=== PATIENT | female | born 1960 | race Two or more races ===

== ENCOUNTER 2025-01-10 17:36 | Emergency (ER) | payer SELFPAY ==
[~2025-01-10] VITALS: Ht 149.9 cm; Wt 74.5 kg
--- NOTE | 2025-01-10 18:05 | ED.PDOC ---
SOB-HPI HPI Comments HPI: 64 y/o F, with PMHx of CKF, DM, HTN, and CVA presents to the ED for CC of shortness of breath. Patient states, she has been experiencing symptoms of shortness of breath x1week. Patient reports, being seen by PCP today (01/10/25) and being relayed to the ED for a further evaluation of symptoms. Patient comments, that she is complaint with dialysis every ,,Sat; last dialyzed yesterday (01/09/25). At this time patient denies palpations, chest pain, headache, cough, sore-throat, or nasal congestion. No other symptoms or modifying factors are present at this time. Patient is still makes urine. Initial Vitals BP:176/70 HR:66 RR:20 O2:98% Temp:98.3 Past Medical History: CKF, DM, HTN, CVA Past Surgical History: LEFT FISTULA Social History: Denies ETOH, smoking, and drug use. Medications: DENIES ANY Allergies: NKA PROCTOR: SOB HPI: Poor Historian. REVIEW OF SYSTEMS: CONSTITUTIONAL: Denies acute: fever, diaphoresis, chills, generalized weakness. HEAD: Denies acute: headache, photophobia Eyes: Denies acute: Double vision, vision loss, eye pain, eye discharge. EARS: Denies acute: tinnitus, hearing loss, ear discharge, ear pain, THROAT: Denies acute: sore throat, swelling, difficulty swallowing , pain with swallowing, change in voice. NECK: Denies acute: neck pain, neck swelling, stiff neck. HEART: Denies acute : chest pain, palpitations, LUNGS: Denies acute: , wheezing, cough, hemoptysis ABDOMEN: Denies acute: abdominal pain, Nausea, Vomiting, diarrhea, melena , hematemesis, hematochezia SKIN: Denies acute: rash, redness, lesions, itchiness. EXTREMITIES: Denies acute: calf pain, numbness, tingling, weakness, denies pain in extremity. Denies acute: Low back pain. Neuro: Denies acute: focal neurological deficit, motor or sensory focal neurological deficit, tremors, seizure like activity, confusion, dizziness, change in mental status, loss of bowel or bladder function, cauda equina like symptoms. : Denies acute: dysuria, hematuria, flank pain, increase in urinary frequency. PSYCH: Denies acute: hallucination, suicidal ideation, homicidal ideation. FEMALE: Denies acute: abnormal vaginal bleeding, foul odor, unusual discharge. PHYSICAL EXAM: General: --mild------acute distress, awake and alert. Head: normocephalic, atraumatic. Neck: supple, trachea is midline, no swelling. Throat: Normal phonation. Eyes:, no erythema, no purulent discharge, no proptosis, no icterus. Heart: regular rate, regular rhythm, no significant murmur appreciated. Lungs: no apparent respiratory distress, Able to speak in full sentences. No wheezing, no rhonchi, no crackles. No stridors Clear to auscultation bilaterally. Abdomen: non tender to palpation, non distended, soft, no guarding, no rebound, + bowel sounds. Obese Neuro: Awake, Alert, oriented to name, self, situation, follows commands GCS=15. Speech is normal. Skin: no petechia, no purpura, no cyanosis, non-pale, not jaundice. Lower extremities: --no - Pitting edema no deformity, no focal swelling, no calf TTP. Makes eye contact. moves all four extremities. Face: no apparent facial droop. Ambulating in the ED with a cane. ED COURSE: DISCLAIMER: This medical document was created using an electronic medical record system with voice recognition software and computerized dictation system. Although this document has been carefully reviewed, there might still be some phonetic and typographical errors. Occasional wrong-word or "sound-alike" substitutions may have occurred due to the inherent limitations of voice recognition software. These areas are purely typographical due to imperfections of the software programs and do not reflect any compromise in the patient's medical care. Please read the chart carefully and recognize, using context, where these substitutions have occurred. Chief Complaint: Shortness of Breath Time Seen by MD: 17:50 Reviewed notes: Nurses Notes, Medications, Allergies Information Source: Patient, Relative (Child) Mode of Arrival: Ambulatory Severity: Moderate Timing: Weeks Duration: Since onset PE Risk Factors: None History of: None Prehospital treatment: None Modifying Factors: Nothing Associated Signs and Symptoms: None EKG EKG : Pulse Rate (adult): 64 Harmans: Normal Cardiac Rhythm: NSR Block: RBBB Hypertrophy: None ST: Normal Was a procedure done? Was a procedure done?: No Differential Dx Differential Diagnosis: Bronchitis, Pneumonia, Sinusitis, Pharyngitis, URI X-Ray, Labs, Meds, VS Vital Signs Date Time Temp Pulse Resp B/P (MAP) Pulse Ox O2 Delivery O2 Flow Rate FiO2 01/10/25 18:05 64 01/10/25 17:48 61 01/10/25 17:40 98.3 66 20 176/70 98 98.3 Lab Test 01/10/25 18:58 01/10/25 18:02 Range/Units Troponin I High Sensitivity 15 15 </=34 ng/L White Blood Count 5.5 4.4-10.8 10^3/uL Red Blood Count 2.92 L 4.0-5.20 10^6/uL Hemoglobin 9.5 L 12.2-16.2 g/dL Hematocrit 27.9 L 36.0-46.0 % Mean Corpuscular Volume 95.4 80.0-100.0 fL Mean Corpuscular Hemoglobin 32.6 H 28.0-32.0 pg Mean Corpuscular Hemoglobin Concent 34.2 32.0-36.0 g/dL Red Cell Distribution Width 14.0 11.8-14.3 % Platelet Count 231 140-450 10^3/uL Mean Platelet Volume 8.8 6.9-10.8 fL Neutrophils (%) (Auto) 51.3 37.0-80.0 % Lymphocytes (%) (Auto) 30.9 10.0-50.0 % Monocytes (%) (Auto) 12.3 H 0.0-12.0 % Eosinophils (%) (Auto) 4.0 0.0-7.0 % Basophils (%) (Auto) 1.5 0.0-2.0 % Neutrophils # (Auto) 2.8 1.6-8.6 10 ^3/uL Lymphocytes # (Auto) 1.7 0.4-5.4 10 ^3/uL Monocytes # (Auto) 0.7 0-1.3 10 ^3/uL Eosinophils # (Auto) 0.2 0-0.8 10 ^3/uL Basophils # (Auto) 0.1 0-0.2 10 ^3/uL Nucleated Red Blood Cells 0.0 % Sodium Level 139 136-145 mmol/L Potassium Level 4.2 3.5-5.1 mmol/L Chloride Level 95 L 98-107 mmol/L Carbon Dioxide Level 32 H 20-31 mmol/L Anion Gap 12 5-15 Blood Urea Nitrogen 23 9-23 mg/dL Creatinine 5.04 H 0.550-1.02 mg/dL Glomerular Filtration Rate Calc 9 >90 mL/min BUN/Creatinine Ratio 4.6 L 10.0-20.0 Serum Glucose 137 H 74-106 mg/dL Calcium Level 8.9 8.7-10.4 mg/dL Total Bilirubin 0.8 0.2-1.0 mg/dL Aspartate Amino Transferase (AST) 15 13-40 U/L Alanine Aminotransferase (ALT) 10 7-40 U/L Alkaline Phosphatase 114 46-116 U/L B-Type Natriuretic Peptide 713.41 0-100 pg/mL Total Protein 7.6 5.7-8.2 g/dL Albumin 4.1 3.2-4.8 g/dL [place] [address] Ph: [phone] DIAGNOSTIC IMAGING Diagnostic Imaging Report : [id number] Signed PATIENT: AGUSTIN PROCTOR ACCT: [id number] UNIT: [id number] : 1960 LOC: ER ROOM / BED: / AGE / SEX: 64 / F ADM STATUS: REG ER SERVICE [id number] ORDERING PHYSICIAN: DENA HERNANDEZ DO PROCEDURE(s): CXRP - CHEST PORTABLE REASON: sob ORDER NUMBER(s): [id number], ACCESSION NUMBER(s): [id number] CHEST RADIOGRAPH Indication: sob Technique: XY CHEST PORTABLE COMPARISON: None FINDINGS: The cardiac silhouette is enlarged. The lungs demonstrate bilateral patchy airspace opacities. The pulmonary vasculature is prominent. Small bilateral pleural effusions. Aortic atherosclerotic disease. There is no pneumothorax. Left axillary/ subclavian stent. IMPRESSION: As above ATED BY: SACHA SCHMIDT MD DICTATED DATE/TIME: 01/10/25 3507 SIGNED BY: SACHA SCHMIDT MD SIGNED DATE/TIME: 01/10/251853 CC: Time of 1ST Reevaluation: 18:20 Reevaluation 1ST: Unchanged Patient Education/Counseling: Diagnosis, Treatment Family Education/Counseling: Diagnosis, Treatment SEPSIS Sepsis Screen Date sepsis recognized/suspect: Jan 10, 2025 Time Sepsis recognized/suspect: 1739 Recent Procedure: No On Antibiotic Therapy: No Respiratory Rate >20: No Heart Rate >90: No Temp<36 C (96.8 F) or >38.3 C: No SBP <90 or MAP <65 mmHG: No New Acute Mental Status Change: No Is the patient on CPAP, BIPAP,: No Physician Orders [facility] (01/10/25 ) Urinalysis (01/10/25 17:45) Chest Portable (01/10/25 17:45) Electrocardigram (01/10/25 17:45) Electrocardigram (01/10/25 18:45) Electrocardigram (01/10/25 20:45) Vital Signs Date Time Temp Pulse Resp B/P (MAP) Pulse Ox O2 Delivery O2 Flow Rate FiO2 01/10/25 18:05 64 01/10/25 17:48 61 01/10/25 17:40 98.3 66 20 176/70 98 98.3 Laboratory Tests Test 01/10/25 18:02 White Blood Count 5.5 10^3/uL (4.4-10.8) Departure 1 Departure Time of Disposition: 19:06 Impression: Primary Impression: Dyspnea Additional Impressions: Pulmonary vascular congestion End-stage renal disease on hemodialysis Anemia Disposition: HOME / SELF CARE / HOMELESS Condition: Stable Additional Instructions: Additional instructions: Please read all instructions provided in this packet carefully. You MUST follow-up with your primary care/family doctor in 1 to 2 days. If you are unable to see your primary care/family doctor, please return to our emergency room for re-assessment and re-evaluation in 1 to 2 days. Return to the emergency room here in our facility or to the nearest ER [facility] if your symptoms change or worsen. CONSULTATIONS: you MUST Follow-up for consultation as soon as possible with: --cardiology and pulmonology in 1-2 days. Please call for appointment. You MUST call the consultants office yourself to make an appointment. You may need to arrange that through your insurance and/or your primary/family doctor. If you are unable to see the [facility] consultant in 1 to 2 days, you must return to our emergency room (or any other ER of your choice) for re-assessment and re-evaluation. Adequate fluid hydration. Although you have been discharged from the Emergency Department, this does not mean that you have a "clean bill of health". No definitive diagnosis for your symptoms has been made today. It is possible that you are in the process of developing a serious illness. This is why you must return to the ED without fail if any new or worsening symptoms develop. Go to your dialysis as scheduled tomorrow. Below is a copy of your radiological report for follow up: [place] [address] Ph: [phone] DIAGNOSTIC IMAGING Diagnostic Imaging Report : [id number] Signed PATIENT: AGUSTIN PROCTOR ACCT: [id number] UNIT: [id number] : 1960 LOC: ER ROOM / BED: / AGE / SEX: 64 / F ADM STATUS: REG ER SERVICE 44 ORDERING PHYSICIAN: DENA HERNANDEZ DO PROCEDURE(s): CXRP - CHEST PORTABLE REASON: sob ORDER NUMBER(s): [id number], ACCESSION NUMBER(s): [id number] CHEST RADIOGRAPH Indication: sob Technique: XY CHEST PORTABLE COMPARISON: None FINDINGS: The cardiac silhouette is enlarged. The lungs demonstrate bilateral patchy airspace opacities. The pulmonary vasculature is prominent. Small bilateral pleural effusions. Aortic atherosclerotic disease. There is no pneumothorax. Left axillary/ subclavian stent. IMPRESSION: As above ATED BY: SACHA SCHMIDT MD DICTATED DATE/TIME: 01/10/251853 SIGNED BY: SACHA SCHMIDT MD SIGNED DATE/TIME: 01/10/251853 CC: Discharged With: Self, Relative Critical Care Note Critical Care Time?: No Heart Score Heart Score: Heart Score Response (Comments) Value History Slightly Suspicious 0 EKG N/A 0 Age 45-64 1 Risk Factors 1 or 2 risk factors 1 Troponin N/A 0 Total 2 I personally scribed for DENA HERNANDEZ DO ([email or web address]) on 01/10/25 at 18:05. Electronically submitted by Gilma Baltazar ([email or web address]). I personally scribed for DENA HERNANDEZ DO ([email or web address]) on 01/10/25 at 19:10. Electronically submitted by Gilma Baltazar ([email or web address]). DENA HERNANDEZ DO Jan 10, 2025 18:05
[2025-01-10 18:22] LABS: Hematocrit 27.9 % (36.0-46.0); Hemoglobin 9.5 g/dL (12.2-16.2); Mean Corpuscular Hemoglobin 32.6 pg (28.0-32.0); Mean Corpuscular Volume 95.4 fL (80.0-100.0); Nucleated Red Blood Cells % 0.0 %
[2025-01-10 18:40] LABS: Alanine Aminotransferase 10 U/L (7-40); Albumin 4.1 g/dL (3.2-4.8); Alkaline Phosphatase 114 U/L (46-116); Anion Gap 12 (5-15); BUN/Creatinine Ratio 4.6 (10.0-20.0); Blood Urea Nitrogen 23 mg/dL (9-23); Calcium 8.9 mg/dL (8.7-10.4); Potassium 4.2 mmol/L (3.5-5.1); Sodium 139 mmol/L (136-145); Total Protein 7.6 g/dL (5.7-8.2)
[2025-01-10 18:41] LABS: Bilirubin, Total 0.8 mg/dL (0.2-1.0)
[2025-01-10 18:44] LABS: Carbon Dioxide 32 mmol/L (20-31); Chloride 95 mmol/L (98-107); Glucose 137 mg/dL (74-106)
--- NOTE | 2025-01-10 18:53 | DVH ---
CHEST RADIOGRAPH Indication: sob Technique: XY CHEST PORTABLE COMPARISON: None FINDINGS: The cardiac silhouette is enlarged. The lungs demonstrate bilateral patchy airspace opacities. The pu lmonary vasculature is prominent. Small bilateral pleural effusions. Aortic atherosclerotic disease. There is no pneumothorax. Left axillary/ subclavian stent. IMPRESSION: As above
[2025-01-10] MEDS: FUROSEMIDE 40 MG/4 ML VIAL IV ONE (19:15)
[2025-01-10 21:45] VITALS: BP 140/90; PULSE 67; RESP 18; TEMP 98.4; O2SAT 95
--- NOTE | 2025-01-11 06:17 | ECG ---
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
== END 2025-01-10 21:50 | disposition home or self-care (01) ==
LOC: ER 17:36
DX: R06.00 Dyspnea, unspecified (principal); R09.89 Other specified symptoms and signs involving the circulatory and respiratory systems; D64.9 Anemia, unspecified; I12.0 Hypertensive chronic kidney disease with stage 5 chronic kidney disease or end stage renal disease; E11.22 Type 2 diabetes mellitus with diabetic chronic kidney disease; N18.6 End stage renal disease; Z86.73 Personal history of transient ischemic attack (TIA), and cerebral infarction without residual deficits; Z99.2 Dependence on renal dialysis
CPT/HCPCS: 36415; 71045; 80053; 83880; 84484; 85025; 93005

== ENCOUNTER 2025-01-26 11:11 | Inpatient (IN) | payer MEDICARE, MEDICAID ==
[2025-01-26] VITALS (7 sets, daily range): BP systolic 148–185; BP diastolic 48–85; PULSE 55–64; RESP 16–20; TEMP 98–98.2; O2SAT 93–99
[~2025-01-26] VITALS: Ht 149.9 cm; Wt 74.4 kg
--- NOTE | 2025-01-26 11:40 | ECG ---
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
[2025-01-26 12:06] LABS: Hematocrit 26.6 % (36.0-46.0); Hemoglobin 8.9 g/dL (12.2-16.2); Mean Corpuscular Hemoglobin 31.9 pg (28.0-32.0); Mean Corpuscular Volume 94.8 fL (80.0-100.0); Nucleated Red Blood Cells % 0.1 %
--- NOTE | 2025-01-26 12:08 | ED.PDOC ---
General HPI Comments jHPI: Shane 64 y.o female accompanied by daughter, presents to the ED for a chief complaint of right mid back pain that started 2 days ago. Per daughter, patient had no recent falls, bending, or twisting episodes that could have exacerbated the pain. Patient does continue to have SOB, was seen at this ED on 01/10/25 for c/o and discharged home with a dx of dyspnea. Patient presents hypertensive at bedside with BP of 176/70. Last dialysis session was yesterday 01/25/25 and patient states compliance with medication which she took this morning. She does not know the list of medications she takes nor did she bring a list. Past Medical History: ESRD, DM, HTN, HLD, Past Surgical History: left fistula Social History: Denies ETOH, smoking, and drug use. Allergies: Denies HPI: Poor Historian. REVIEW OF SYSTEMS: CONSTITUTIONAL: Denies acute: fever, diaphoresis, chills, HEAD: Denies acute: headache, photophobia Eyes: Denies acute: Double vision, vision loss, eye pain, eye discharge. EARS: Denies acute: tinnitus, hearing loss, ear discharge, ear pain, THROAT: Denies acute: sore throat, swelling, difficulty swallowing , pain with swallowing, change in voice. NECK: Denies acute: neck pain, neck swelling, stiff neck. HEART: Denies acute : chest pain, palpitations, LUNGS: Denies acute: wheezing, cough, hemoptysis ABDOMEN: Denies acute: abdominal pain, Nausea, Vomiting, diarrhea, melena , hematemesis, hematochezia SKIN: Denies acute: rash, redness, lesions, itchiness. EXTREMITIES: Denies acute: calf pain, numbness, tingling, weakness, denies pain in extremity. Neuro: Denies acute: focal neurological deficit, motor or sensory focal neurological deficit, tremors, seizure like activity, confusion, dizziness, change in mental status, loss of bowel or bladder function, cauda equina like symptoms. : Denies acute: dysuria, hematuria, flank pain, increase in urinary frequency. PSYCH: Denies acute: hallucination, suicidal ideation, homicidal ideation. FEMALE: Denies acute: abnormal vaginal bleeding, foul odor, unusual discharge. PHYSICAL EXAM: General: ---mild-----acute distress, awake and alert. Head: normocephalic, atraumatic. Neck: supple, trachea is midline, no swelling. Throat: Normal phonation. Eyes:, no erythema, no purulent discharge, no proptosis, no icterus. Heart: regular rate, regular rhythm, no significant murmur appreciated. Lungs: no apparent respiratory distress, Able to speak in full sentences. No wheezing, no rhonchi, no crackles. No stridors Clear to auscultation bilaterally. Abdomen: non tender to palpation, non distended, soft, no guarding, no rebound, + bowel sounds. Obese Palpation of the area of pain: She points to right mid back area. Neuro: Awake, Alert, oriented to name, self, situation, follows commands GCS=15. Speech is normal. Skin: no petechia, no purpura, no cyanosis, non-pale, not jaundice. Lower extremities: --trace bilateral - Pitting edema no deformity, no focal swelling, no calf TTP. Able to flex bilateral hips and knees. Makes eye contact. moves all four extremities. Face: no apparent facial droop. ED COURSE: DISCLAIMER: This medical document was created using an electronic medical record system with voice recognition software and computerized dictation system. Although this doc ument has been carefully reviewed, there might still be some phonetic and typographical errors. Occasional wrong-word or "sound-alike" substitutions may have occurred due to the inherent limitations of voice recognition software. These areas are purely typographical due to imperfections of the software programs and do not reflect any compromise in the patient's medical care. Please read the chart carefully and recognize, using context, where these substitutions have occurred. Chief Complaint: Shortness of Breath Time Seen by MD: 11:56 Reviewed notes: Allergies Allergies: Coded Allergies: NO KNOWN ALLERGIES (Unverified , 01/10/25) Home Meds Reported Medications Carvedilol (Carvedilol) 3.125 Mg Tab, 1 TAB PO BID 01/26/25 Fluoxetine HCl (Fluoxetine HCl) 20 Mg Cap, 1 CAP PO DAILY 01/26/25 Atorvastatin Calcium (ATORVASTATIN CALCIUM) 80 Mg Tab, 1 TAB PO DAILY 01/26/25 Hydralazine Hcl (Hydralazine Hcl) 50 Mg Tab, 1 TAB PO TID 01/26/25 Information Source: Patient, Relative Mode of Arrival: Ambulatory Was a procedure done? Was a procedure done?: No Differential Diagnosis Kidney stone (Female): DJD, Musculoskeletal pain, Pancreatitis, Pyelonephritis, Strain, Other (Flank Pain;DDX include Nephrolethiasis, obstructive uropathy, kidney cancer, renal infarct, intraabdominal neoplasm, lower lobe pneumonia, retroperitoneal hemorrhage, pancreatitis, aneurysm, dissection, musculoskeletal, rib contusion/trauma, hematoma, PYLONEPHRITIS, muscle strain, spinal disease. ) X-Ray, Labs, Meds, VS Vital Signs Date Time Temp Pulse Resp B/P (MAP) Pulse Ox O2 Delivery O2 Flow Rate FiO2 01/26/25 16:31 60 23 156/48 (84) 98 01/26/25 16:26 194/54 01/26/25 14:24 198/62 01/26/25 14:23 198/62 01/26/25 14:04 98.2 65 28 198/62 (107) 96 98.2 01/26/25 13:31 207/62 01/26/25 12:33 63 20 97 Nasal Cannula* 2 28 01/26/25 12:31 63 20 221/38 (98) 97 01/26/25 11:30 65 01/26/25 11:13 97.7 68 18 182/80 95 97.7 Lab Test 01/26/25 15:27 01/26/25 15:25 01/26/25 12:46 01/26/25 11:50 Range/Units Troponin I High Sensitivity 15 16 16 </=34 ng/L Urine Color Light-yellow Yellow Urine Clarity Turbid H Clear Urine pH 8.5 5.0-9.0 Urine Specific [place] 1.007 1.001-1.035 Urine Protein 3+ H Negative Urine Ketones Negative Negative Urine Blood Negative Negative /uL Urine Nitrite Negative Negative Urine Bilirubin Negative Negative Urine Urobilinogen Normal Negative mg/dL Urine Leukocyte Esterase 2+ Negative /uL Urine RBC 1 0 - 4 /hpf Urine Microscopic WBC 15 H 0-5 /HPF Urine Squamous Epithelial Cells Mod <5 /hpf Urine Bacteria Few H None Seen /hpf Urine Glucose 1+ H Normal mg/dL White Blood Count 5.7 4.4-10.8 10^3/uL Red Blood Count 2.80 L 4.0-5.20 10^6/uL Hemoglobin 8.9 L 12.2-16.2 g/dL Hematocrit 26.6 L 36.0-46.0 % Mean Corpuscular Volume 94.8 80.0-100.0 fL Mean Corpuscular Hemoglobin 31.9 28.0-32.0 pg Mean Corpuscular Hemoglobin Concent 33.6 32.0-36.0 g/dL Red Cell Distribution Width 14.6 H 11.8-14.3 % Platelet Count 188 140-450 10^3/uL Mean Platelet Volume 8.9 6.9-10.8 fL Neutrophils (%) (Auto) 52.5 37.0-80.0 % Lymphocytes (%) (Auto) 28.3 10.0-50.0 % Monocytes (%) (Auto) 14.0 H 0.0-12.0 % Eosinophils (%) (Auto) 3.0 0.0-7.0 % Basophils (%) (Auto) 2.2 H 0.0-2.0 % Neutrophils # (Auto) 3.0 1.6-8.6 10 ^3/uL Lymphocytes # (Auto) 1.6 0.4-5.4 10 ^3/uL Monocytes # (Auto) 0.8 0-1.3 10 ^3/uL Eosinophils # (Auto) 0.2 0-0.8 10 ^3/uL Basophils # (Auto) 0.1 0-0.2 10 ^3/uL Nucleated Red Blood Cells 0.1 % Sodium Level 139 136-145 mmol/L Potassium Level 3.9 3.5-5.1 mmol/L Chloride Level 94 L 98-107 mmol/L Carbon Dioxide Level 32 H 20-31 mmol/L Anion Gap 13 5-15 Blood Urea Nitrogen 15 9-23 mg/dL Creatinine 3.90 H 0.550-1.02 mg/dL Glomerular Filtration Rate Calc 12 >90 mL/min BUN/Creatinine Ratio 3.8 L 10.0-20.0 Serum Glucose 127 H 74-106 mg/dL Hemoglobin A1c 6.1 H <5.7 % A1C Lactic Acid Level 1.5 0.4-2.0 mmol/L Calcium Level 8.9 8.7-10.4 mg/dL Total Bilirubin 0.6 0.2-1.0 mg/dL Aspartate Amino Transferase (AST) 13 13-40 U/L Alanine Aminotransferase (ALT) 10 7-40 U/L Alkaline Phosphatase 105 46-116 U/L B-Type Natriuretic Peptide 719.83 0-100 pg/mL Total Protein 7.1 5.7-8.2 g/dL Albumin 4.0 3.2-4.8 g/dL Current Medications Medications (Trade) Dose Ordered Sig/Carito Route Start Time Stop Time Status Last Admin Hydralazine HCl (Apresoline Injection) 5 mg ONCE ONCE IV 01/26/25 13:30 01/26/25 13:31 DC 01/26/25 13:31 Furosemide (Lasix Injection) 40 mg ONCE ONCE IV 01/26/25 13:45 01/26/25 13:48 DC 01/26/25 14:23 Hydralazine HCl (Apresoline Injection) 5 mg ONCE ONCE IV 01/26/25 14:15 01/26/25 14:16 DC 01/26/25 14:24 Acetaminophen/ Hydrocodone Bitart (Casey 5/325MG Tab) 1 tab ONCE ONCE PO 01/26/25 14:15 01/26/25 14:16 DC 01/26/25 14:23 Hydralazine HCl (Apresoline Injection) 10 mg ONCE ONCE IV 01/26/25 16:00 01/26/25 16:01 DC 01/26/25 16:26 Ceftriaxone Sodium 50 ml @ 100 mls/hr ONCE ONCE IV 01/26/25 16:15 01/26/25 16:44 DC 01/26/25 16:26 [place] [id number] Ph: [phone] DIAGNOSTIC IMAGING Diagnostic Imaging Report : [id number] Signed PATIENT: AGUSTIN VANEGASACCT: [id number] UNIT: [id number] : 1960 LOC: ER ROOM / BED: / AGE / SEX: 64 / F ADM STATUS: REG ER SERVICE [id number] ORDERING PHYSICIAN: DENA HERNANDEZ DO PROCEDURE(s): ABPL - CT AB PEL WO CON-NO ORAL OR IV REASON: R FLANK PAIN ORDER NUMBER(s): [id number], ACCESSION NUMBER(s): [id number] CT CT AB PEL WO CON-NO ORAL OR IV INDICATION: R FLANK PAIN EXAM DATE: 01/26/2025 12:01 PM COMPARISON: None RADIATION DOSE: CTDIvol: 22 mGy, DLP: 1071 mGy*cm PROCEDURE: Helical CT images were obtained of the abdomen and pelvis without IV contrast Sagittal and coronal reconstructions are provided. ORAL CONTRAST: None. ADDITIONAL IMAGES / REFORMATS: None All CT scans at this medical facility are performed using dose modulation techniques as appropriate to a performed exam including the following: Automated exposure control was utilized; adjustment of the MA and/or KV according to patient size; and use of iterative reconstruction technique. FINDINGS: LUNG BASE: Normal. LIVER: Normal. GALLBLADDER AND BILIARY TREE: No calcified gallstones. Normal caliber wall. No intra- or extrahepatic biliary ductal dilation. PANCREAS: Normal. SPLEEN: Normal. BOWEL: Mild colonic diverticulosis. Normal appendix. ADRENALS: Normal. KIDNEYS AND URETER: 6 mm nonobstructive right kidney stone, no hydronephrosis seen. BLADDER: Normal. REPRODUCTIVE ORGANS: Normal. LYMPH NODES:No lymphadenopathy. PERITONEUM: No ascites or free air. No other fluid collection. VESSELS: Scattered atherosclerotic calcifications are noted. RETROPERITONEUM: Normal. ABDOMINAL WALL: Normal. BONES: Scattered osseous degenerative changes are noted. IMPRESSION: No acute intraabdominal abnormality. 6 mm nonobstructive right kidney stone, no hydronephrosis seen. ATED BY: JOHNATHAN HERNANDEZ MD DICTATED DATE/TIME: 01/26/25 1303 SIGNED BY: JOHNATHAN HERNANDEZ MD SIGNED DATE/TIME: 01/26/25 1303 CC: [place] [id number] Ph: [phone] DIAGNOSTIC IMAGING Diagnostic Imaging Report : [id number] Signed PATIENT: AGUSTIN VANEGASACCT: [id number] UNIT: [id number] : 1960 LOC: ER ROOM / BED: / AGE / SEX: 64 / F ADM STATUS: REG ER SERVICE 1146 ORDERING PHYSICIAN: DENA HERNANDEZ DO PROCEDURE(s): CXRP - CHEST PORTABLE REASON: sob, htn, ORDER NUMBER(s): [id number], ACCESSION NUMBER(s): [id number] EXAM: XY CHEST PORTABLE HISTORY: sob, htn, COMPARISON: XY CHEST PORTABLE on DOS: 01/10/25 TECHNIQUE: Portable upright AP view of the chest was performed. FINDINGS: No pneumothorax or consolidative infiltrates. There is central interstitial prominence. The heart is enlarged. Left subclavian vascular stent is re- identified. There is thoracic degenerative disc disease. IMPRESSION: 1. Cardiomegaly with central interstitial prominence, which may be due to reactive airways disease and/or mild CHF. The lungs are otherwise clear. ATED BY: REGINALD HOPPER MD DICTATED DATE/TIME: 01/26/251239 SIGNED BY: REGINALD HOPPER MD SIGNED DATE/TIME: 01/26/251239 CC: Time of 1ST Reevaluation: 12:00 Reevaluation 1ST: Unchanged Patient Education/Counseling: Diagnosis, Treatment Family Education/Counseling: Diagnosis, Treatment Comments MDM: patient presented with the above HPI.--right flank pain/shortness of breath----workup was initiated. patient was found with the above mentioned diagnosis. the following medications were ordered: please refer to order lists of meds and tests obtained by myself Dr. Hernandez. Patient ED course and VS have been stabilized. Patient has been reassessed in the ED and remained in a stable condition. Pertinent incidental findings were discussed with the patient and/or family. Patient/family voices understanding and is agreeable with plan. Patient has been observed in the ED adequate length of time to insure improvement/stability. Escalation of care considered: Consideration of escalation to observation or admission Patient has required multiple IV medication intervention for blood pressure control. Patient was ADMITTED to the medicine team for further evaluation and treatment of their presentation. All the reports of any imaging studies that were ordered by myself were reviewed by myself. Departure 1 Departure Time of Disposition: 16:09 Impression: Primary Impression: Hypertensive crisis Additional Impressions: UTI (urinary tract infection) Right flank pain CHF exacerbation Disposition: ADMITTED INPATIENT Condition: Guarded Discharged With: Self, Relative Critical Care Note Critical Care Time?: Yes (55 min-critical care time only) I personally scribed for DENA HERNANDEZ DO ([email or web address]) on 01/26/25 at 12:08. Electronically submitted by Susanne Vail ([facility]). I personally scribed for DENA HERNANDEZ DO ([facility]) on 01/26/25 at 13:30. Electronically submitted by Susanne Vail ([facility]). I personally scribed for DENA HERNANDEZ DO ([facility]) on 01/26/25 at 16:10. Electronically submitted by Susanne Vail ([facility]). I personally scribed for DENA HERNANDEZ DO ([facility]) on 01/26/25 at 17:05. Electronically submitted by Akbar Victoria ([facility]). DENA HERNANDEZ DO Jan 26, 2025 12:08
[2025-01-26 12:31] LABS: Alanine Aminotransferase 10 U/L (7-40); Albumin 4.0 g/dL (3.2-4.8); Alkaline Phosphatase 105 U/L (46-116); Anion Gap 13 (5-15); BUN/Creatinine Ratio 3.8 (10.0-20.0); Bilirubin, Total 0.6 mg/dL (0.2-1.0); Blood Urea Nitrogen 15 mg/dL (9-23); Calcium 8.9 mg/dL (8.7-10.4); Carbon Dioxide 32 mmol/L (20-31); Chloride 94 mmol/L (98-107); Glucose 127 mg/dL (74-106); Potassium 3.9 mmol/L (3.5-5.1); Sodium 139 mmol/L (136-145); Total Protein 7.1 g/dL (5.7-8.2)
--- NOTE | 2025-01-26 12:43 | DVH ---
EXAM: XY CHEST PORTABLE HISTORY: sob, htn, COMPARISON: XY CHEST PORTABLE on DOS: 01/10/25 TECHNIQUE: Portable upright AP view of the chest was performed. FINDINGS: No pneumothorax or consolidative infiltrates. There is central interstitial prominence. The heart i s enlarged. Left subclavian vascular stent is re-identified. There is thoracic degenerative disc dis ease. IMPRESSION: 1. Cardiomegaly with central interstitial prominence, which may be due to reactive airways disease an d/or mild CHF. The lungs are otherwise clear.
--- NOTE | 2025-01-26 13:06 | DVH ---
CT CT AB PEL WO CON-NO ORAL OR IV INDICATION: R FLANK PAIN EXAM DATE: 01/26/2025 12:01 PM COMPARISON: None RADIATION DOSE: CTDIvol: 22 mGy, DLP: 1071 mGy*cm PROCEDURE: Helical CT images were obtained of the abdomen and pelvis without IV contrast Sagittal and coronal reconstructions are provided. ORAL CONTRAST: None. ADDITIONAL IMAGES / REFORMATS: None All C T scans at this medical facility are performed using dose modulation techniques as appropriate to a p erformed exam including the following: Automated exposure control was utilized; adjustment of the MA and/or KV according to patient size; and use of iterative reconstruction technique. FINDINGS: LUNG BASE: Normal. LIVER: Normal. GALLBLADDER AND BILIARY TREE: No calcified gallstones. Normal caliber wall. No intra- or extrahepatic biliary ductal dilation. PANCREAS: Normal. SPLEEN: Normal. BOWEL: Mild colonic diverticulosis. Normal appendix. ADRENALS: Normal. KIDNEYS AND URETER: 6 mm nonobstructive right kidney stone, no hydronephrosis seen. BLADDER: Normal. REPRODUCTIVE ORGANS: Normal. LYMPH NODES:No lymphadenopathy. PERITONEUM: No ascites or free air. No other fluid collection. VESSELS: Scattered atherosclerotic calcifications are noted. RETROPERITONEUM: Normal. ABDOMINAL WALL: Normal. BONES: Scattered osseous degenerative changes are noted. IMPRESSION: No acute intraabdominal abnormality. 6 mm nonobstructive right kidney stone, no hydronephrosis seen.
[2025-01-26] MEDS: hydrALAZINE HCL 20 MG/ML VL ONE (13:31)
[2025-01-26] MEDS: hydrALAZINE HCL 20 MG/ML VL IV ONE ×3 (13:31→16:26)
[2025-01-26] MEDS: FUROSEMIDE 40 MG/4 ML VIAL IV ONE (14:23)
[2025-01-26] MEDS: HYDROcodone-ACET 5/325MG TAB PO ONE (14:23)
[2025-01-26 15:40] LABS: Urine Protein, UAD 3+ (Negative)
[2025-01-26] MEDS ORDERED: CARV3.1240 PO (16:38)
[2025-01-26] MEDS ORDERED: ATOR-47 PO (16:38)
[2025-01-26] MEDS ORDERED: FLUO-470 PO (16:38)
[2025-01-26] MEDS ORDERED: HYDR50TA47 PO (16:38)
--- NOTE | 2025-01-26 16:44 | DVHHP2 ---
History of Present Illness Reason for Visit: Dyspnea with back pain History of Present Illness Sarah Faith is a 64-year-old female with past medical history of ESRD on HD () with left AV fistula, diabetes, hypertension, hyperlipidemia, and CVA with no reported deficits who presents to the ED with shortness of breath and back pain x2 days. Patient reports that the back pain is 9/10 "pain" and constant. Patient also reports that she is not on home oxygen but upon examination patient is currently on 2 L via nasal cannula. Patient denies any recent trauma or injury, recent sick contacts, recent travels, recent ingestion of spoiled food, chest pain, fever, chills, lightheadedness, weakness, dizziness, abdominal pain, nausea, vomiting, diarrhea, or urinary symptoms. Called patient's daughter Tasha x 2 and unsuccessful. 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 Renal/: Chronic renal failure Endocrine: Diabetes Past Surgical History: None Smoke: No ALCOHOL: none Drugs: None Lives: with Family Domestic Violence: Neg Review of Systems Respiratory: Shortness of breath Musculoskeletal: back pain Allergies: Coded Allergies: NO KNOWN ALLERGIES (Unverified , 01/10/25) Exam Vital Signs Vital Signs Date Time Temp Pulse Resp B/P (MAP) Pulse Ox O2 Delivery O2 Flow Rate FiO2 01/26/25 16:26 194/54 01/26/25 14:04 98.2 65 28 96 98.2 01/26/25 12:33 Nasal Cannula* 2 28 General Appearance: Alert, Oriented X3, Cooperative, No acute distress HEENT: Atraumatic, PERRLA, EOMI Respiratory: Clear to auscultation, Normal air movement Cardiovascular: Regular rate, Normal S1, Normal S2, No murmurs Abdominal: Normal bowel sounds, Soft Extremities: No clubbing, No cyanosis, No edema, Normal pulses, No tenderness/swelling Skin: No significant lesion Neuro: Normal gait, Normal speech, Strength at 5/5 X4 ext, Normal tone, Sensation intact Psych/Mental Status: Mental status NL, Mood NL Labs/Xrays Labs Test 01/26/25 15:27 01/26/25 15:25 01/26/25 11:50 Range/Units Troponin I High Sensitivity 15 </=34 ng/L Urine Color Light-yellow Yellow Urine Clarity Turbid H Clear Urine pH 8.5 5.0-9.0 Urine Specific [place] 1.007 1.001-1.035 Urine Protein 3+ H Negative Urine Ketones Negative Negative Urine Blood Negative Negative /uL Urine Nitrite Negative Negative Urine Bilirubin Negative Negative Urine Urobilinogen Normal Negative mg/dL Urine Leukocyte Esterase 2+ Negative /uL Urine RBC 1 0 - 4 /hpf Urine Microscopic WBC 15 H 0-5 /HPF Urine Squamous Epithelial Cells Mod <5 /hpf Urine Bacteria Few H None Seen /hpf Urine Glucose 1+ H Normal mg/dL White Blood Count 5.7 4.4-10.8 10^3/uL Red Blood Count 2.80 L 4.0-5.20 10^6/uL Hemoglobin 8.9 L 12.2-16.2 g/dL Hematocrit 26.6 L 36.0-46.0 % Mean Corpuscular Volume 94.8 80.0-100.0 fL Mean Corpuscular Hemoglobin 31.9 28.0-32.0 pg Mean Corpuscular Hemoglobin Concent 33.6 32.0-36.0 g/dL Red Cell Distribution Width 14.6 H 11.8-14.3 % Platelet Count 188 140-450 10^3/uL Mean Platelet Volume 8.9 6.9-10.8 fL Neutrophils (%) (Auto) 52.5 37.0-80.0 % Lymphocytes (%) (Auto) 28.3 10.0-50.0 % Monocytes (%) (Auto) 14.0 H 0.0-12.0 % Eosinophils (%) (Auto) 3.0 0.0-7.0 % Basophils (%) (Auto) 2.2 H 0.0-2.0 % Neutrophils # (Auto) 3.0 1.6-8.6 10 ^3/uL Lymphocytes # (Auto) 1.6 0.4-5.4 10 ^3/uL Monocytes # (Auto) 0.8 0-1.3 10 ^3/uL Eosinophils # (Auto) 0.2 0-0.8 10 ^3/uL Basophils # (Auto) 0.1 0-0.2 10 ^3/uL Nucleated Red Blood Cells 0.1 % Sodium Level 139 136-145 mmol/L Potassium Level 3.9 3.5-5.1 mmol/L Chloride Level 94 L 98-107 mmol/L Carbon Dioxide Level 32 H 20-31 mmol/L Anion Gap 13 5-15 Blood Urea Nitrogen 15 9-23 mg/dL Creatinine 3.90 H 0.550-1.02 mg/dL Glomerular Filtration Rate Calc 12 >90 mL/min BUN/Creatinine Ratio 3.8 L 10.0-20.0 Serum Glucose 127 H 74-106 mg/dL Lactic Acid Level 1.5 0.4-2.0 mmol/L Calcium Level 8.9 8.7-10.4 mg/dL Total Bilirubin 0.6 0.2-1.0 mg/dL Aspartate Amino Transferase (AST) 13 13-40 U/L Alanine Aminotransferase (ALT) 10 7-40 U/L Alkaline Phosphatase 105 46-116 U/L B-Type Natriuretic Peptide 719.83 0-100 pg/mL Total Protein 7.1 5.7-8.2 g/dL Albumin 4.0 3.2-4.8 g/dL CT CT AB PEL WO CON-NO ORAL OR IV INDICATION: R FLANK PAIN EXAM DATE: 01/26/2025 12:01 PM COMPARISON: None RADIATION DOSE: CTDIvol: 22 mGy, DLP: 1071 mGy*cm PROCEDURE: Helical CT images were obtained of the abdomen and pelvis without IV contrast Sagittal and coronal reconstructions are provided. ORAL CONTRAST: None. ADDITIONAL IMAGES / REFORMATS: None All CT scans at this medical facility are performed using dose modulation techniques as appropriate to a performed exam including the following: Automated exposure control was utilized; adjustment of the MA and/or KV according to patient size; and use of iterative reconstruction technique. FINDINGS: LUNG BASE: Normal. LIVER: Normal. GALLBLADDER AND BILIARY TREE: No calcified gallstones. Normal caliber wall. No intra- or extrahepatic biliary ductal dilation. PANCREAS: Normal. SPLEEN: Normal. BOWEL: Mild colonic diverticulosis. Normal appendix. ADRENALS: Normal. KIDNEYS AND URETER: 6 mm nonobstructive right kidney stone, no hydronephrosis seen. BLADDER: Normal. REPRODUCTIVE ORGANS: Normal. LYMPH NODES:No lymphadenopathy. PERITONEUM: No ascites or free air. No other fluid collection. VESSELS: Scattered atherosclerotic calcifications are noted. RETROPERITONEUM: Normal. ABDOMINAL WALL: Normal. BONES: Scattered osseous degenerative changes are noted. IMPRESSION: No acute intraabdominal abnormality. 6 mm nonobstructive right kidney stone, no hydronephrosis seen. EXAM: XY CHEST PORTABLE HISTORY: sob, htn, COMPARISON: XY CHEST PORTABLE on DOS: 01/10/25 TECHNIQUE: Portable upright AP view of the chest was performed. FINDINGS: No pneumothorax or consolidative infiltrates. There is central interstitial prominence. The heart is enlarged. Left subclavian vascular stent is re- identified. There is thoracic degenerative disc disease. IMPRESSION: 1. Cardiomegaly with central interstitial prominence, which may be due to reactive airways disease and/or mild CHF. The lungs are otherwise clear. SEPSIS Sepsis Screen Date sepsis recognized/suspect: Jan 26, 2025 Time Sepsis recognized/suspect: 1233 Recent Procedure: No On Antibiotic Therapy: No Respiratory Rate >20: No Heart Rate >90: No Temp<36 C (96.8 F) or >38.3 C: No SBP <90 or MAP <65 mmHG: No New Acute Mental Status Change: No Is the patient on CPAP, BIPAP,: No Physician Orders Electrocardigram (01/26/25 11:37) Manager Contact (01/26/25 ) Chest Portable (01/26/25 11:46) Ct Ab Pel Wo Con-No Oral Or Iv (01/26/25 11:59) Ceftriaxone 1gm/50ml (Rocephin) (01/26/25 16:15) Vital Signs Date Time Temp Pulse Resp B/P (MAP) Pulse Ox O2 Delivery O2 Flow Rate FiO2 01/26/25 16:26 194/54 01/26/25 14:24 198/62 01/26/25 14:23 198/62 01/26/25 14:04 98.2 65 28 198/62 (107) 96 98.2 01/26/25 13:31 207/62 01/26/25 12:33 63 20 97 Nasal Cannula* 2 28 01/26/25 12:31 63 20 221/38 (98) 97 01/26/25 11:30 65 01/26/25 11:13 97.7 68 18 182/80 95 97.7 Laboratory Tests Test 01/26/25 11:50 Lactic Acid Level 1.5 mmol/L (0.4-2.0) White Blood Count 5.7 10^3/uL (4.4-10.8) Medications Medications Dose Ordered Sig/Carito Route Start Time Stop Time Status Last Admin Dose Admin Acetaminophen/ Hydrocodone Bitart 1 tab ONCE ONCE PO 01/26/25 14:15 01/26/25 14:16 DC 01/26/25 14:23 1 TAB Ceftriaxone Sodium 50 ml @ 100 mls/hr ONCE ONCE IV 01/26/25 16:15 01/26/25 16:44 01/26/25 16:26 100 MLS/HR Furosemide 40 mg ONCE ONCE IV 01/26/25 13:45 01/26/25 13:48 DC 01/26/25 14:23 40 MG Hydralazine HCl 5 mg ONCE ONCE IV 01/26/25 13:30 01/26/25 13:31 DC 01/26/25 13:31 5 MG Hydralazine HCl 5 mg ONCE ONCE IV 01/26/25 14:15 01/26/25 14:16 DC 01/26/25 14:24 5 MG Hydralazine HCl 10 mg ONCE ONCE IV 01/26/25 16:00 01/26/25 16:01 DC 01/26/25 16:26 10 MG Assessment/Plan Assessment/Plan Assessment Hypertensive urgency Dyspnea Intractable back pain rule out fracture 6 mm nonobstructive right kidney stone, no hydronephrosis seen Cardiomegaly ESRD on HD (//) with left AV fistula Anemia UTI Acute hypoxic respiratory failure on supplemental oxygen History of diabetes History of hypertension History of hyperlipidemia History of CVA with no reported deficits Plan Admit to med surge Supplemental O2 Antihypertensives Antiemetics Pain management X-ray lumbar spine UA IV antibiotics-ceftriaxone Lactic CT abdomen and pelvis Troponin noted negative x3 Chest x-ray UA Diuretics BNP noted EKG Hemoglobin A1c ISS and Accu-Cheks Duo nebs Renal ultrasound Diet Home medications reconciled DVT prophylaxis-SCDs PUD prophylaxis-not indicated no history of GERD or GI bleed Discussed plan of care with patient and nurse Nephro consult [id number] Preventive counseling healthy eating habits, physical activity, and regular checkups Plan discussed with: Patient Date of Service: Jan 26, 2025 Billing Provider: CAROLINE DIAZ Common Visit Codes: [id number] INP/OBS CARE (HIGH) Secondary Visit Codes: [id number] COUNSELING IND CAROLINE DIAZ Jan 26, 2025 16:44
[2025-01-26] MEDS ORDERED: IPRATROPIUM BROM 0.5 MG/2.5ML INH SOL NEB PRN (16:45)
[2025-01-26] MEDS ORDERED: HYDROcodone-ACET 5/325MG TAB PO PRN (16:45)
[2025-01-26] MEDS ORDERED: ALBUTEROL SULF 2.5 MG/0.5ML(0.5%) NEB SOLN NEB PRN (16:45)
[2025-01-26] MEDS ORDERED: ACETAMINOPHEN 325 MG TAB PO PRN (16:45)
[2025-01-26] MEDS ORDERED: DEXTROSE (50%) 50ML SYRG IV PRN (16:45)
[2025-01-26] MEDS ORDERED: ONDANSETRON HCL 4 MG/2 ML VIAL IV PRN (16:45)
--- NOTE | 2025-01-26 17:20 | DVH ---
CLINICAL INDICATION: back pain TECHNIQUE: 3 radiographic views of the lumbar spine were obtained. Comparison: None FINDINGS/IMPRESSION: No compressed vertebra. Grade 1 anterior spondylolisthesis is noted at L4-5.
[2025-01-26] MEDS: ACCU-CHEK COMFORT CURVE STRIP VI SCH (17:34)
[2025-01-26] MEDS: InsuLIN REG 1unit/0.01ml Soln (100units/ml) SC SCH (17:36)
[2025-01-26] MEDS: MORPHINE SULFATE INJ 2 MG/ml SYRG IV ONE (17:58)
[2025-01-26] MEDS: ONDANSETRON HCL 4 MG/2 ML VIAL IV ONE (17:58)
[2025-01-26] MEDS: CARVEDILOL 3.125 MG TAB PO ONE (17:58)
[2025-01-26] MEDS: MORPHINE SULFATE 4 MG/ML SYR/VIAL ONE (17:59)
[2025-01-26] MEDS: FUROSEMIDE 40 MG/4 ML VIAL IV SCH (18:00)
--- NOTE | 2025-01-26 18:40 | DVH ---
INDICATION: right sided pain TECHNIQUE: Multiple real-time sonographic images of the kidneys and bladder were obtained. COMPARISON: None FINDINGS: RIGHT kidney not visualized LEFT kidney not visualized No large intraluminal masses are seen in the bladder. Prevoid bladder volume 58 mL. Bladder wall 3.4 mm. Avoid IMPRESSION: 1. Right and left kidneys not visible 2. Bladder contains 58 mL of urine. 3. Bladder wall measures 3.4 mm
[2025-01-26] MEDS ORDERED: ACET1CAP14 PO (21:31)
[2025-01-26] MEDS: ATORVASTATIN 20 MG TAB PO SCH (21:43)
[2025-01-26] MEDS: CARVEDILOL 3.125 MG TAB PO SCH (22:00)
[2025-01-26] MEDS ORDERED: hydrALAZINE HCL 20 MG/ML VL IV ONE (22:15)
[2025-01-27] VITALS (10 sets, daily range): BP systolic 154–172; BP diastolic 70–91; PULSE 55–64; RESP 18–24; TEMP 97.9–98.7; O2SAT 91–99
[2025-01-27 05:52] LABS: Hematocrit 26.2 % (36.0-46.0); Hemoglobin 8.8 g/dL (12.2-16.2); Mean Corpuscular Hemoglobin 32.5 pg (28.0-32.0); Mean Corpuscular Volume 96.6 fL (80.0-100.0); Nucleated Red Blood Cells % 0.1 %
[2025-01-27 06:15] LABS: Potassium 4.3 mmol/L (3.5-5.1); Sodium 139 mmol/L (136-145)
[2025-01-27 06:19] LABS: Anion Gap 14 (5-15)
[2025-01-27 06:20] LABS: Calcium 8.7 mg/dL (8.7-10.4)
[2025-01-27 06:24] LABS: Alkaline Phosphatase 95 U/L (46-116); BUN/Creatinine Ratio 3.5 (10.0-20.0); Blood Urea Nitrogen 18 mg/dL (9-23); Glucose 90 mg/dL (74-106)
[2025-01-27 06:25] LABS: Total Protein 6.9 g/dL (5.7-8.2)
[2025-01-27 06:26] LABS: Albumin 3.7 g/dL (3.2-4.8)
[2025-01-27 06:27] LABS: Bilirubin, Total 0.6 mg/dL (0.2-1.0)
[2025-01-27 06:43] LABS: Alanine Aminotransferase < 9 U/L (7-40); Carbon Dioxide 31 mmol/L (20-31); Chloride 94 mmol/L (98-107)
--- NOTE | 2025-01-27 15:47 | DVHINCON2 ---
CONSULTING PHYSICIAN: Cedric Thayer MD REASON FOR CONSULTATION: Management of dialysis. HISTORY OF PRESENT ILLNESS: The patient is a 64-year-old one of her chronic dialysis patients who came to the hospital yesterday complaining of shortness of breath and severe back pain, which affected her deep inspirations. She is due for dialysis today; however, she is missing her treatment because she is here in the hospital. When she presented, her blood pressure was initially elevated with a systolic of 190. Chest x-ray showed mild pulmonary congestion. Other than that, she does not have any other symptoms. No actual chest pain. No fever. No cough. PAST MEDICAL HISTORY: Otherwise, significant for longstanding hypertension, end-stage renal disease, diabetes, hyperlipidemia, previous history of stroke, anemia, secondary hyperparathyroidism. SOCIAL HISTORY: She denies smoking cigarettes and drinking alcohol. FAMILY HISTORY: Significant for diabetes and hypertension. MEDICATIONS: In the hospital, she is on fluoxetine, ceftriaxone, atorvastatin, carvedilol, furosemide, insulin, albuterol, hydralazine, acetaminophen and sulfa. PHYSICAL EXAMINATION: VITAL SIGNS: Blood pressure 168/78, heart rate 62 per minute, temperature 97.9, oxygen saturation 97% on nasal cannula at 2 L. GENERAL: The patient is alert and oriented x3, in no acute distress. HEENT: Unremarkable. NECK: There is no jugular venous distention. LUNGS: Show a few scattered crackles at the bases. CARDIOVASCULAR: Shows regular rate with S4 gallop, 1/6 systolic murmur. ABDOMEN: Soft, nondistended. Bowel sounds with normal intensity and frequency. EXTREMITIES: Show no edema. NEUROLOGIC: Nonfocal. LABORATORY FINDINGS: Sodium 139, potassium 4.3, creatinine 5, hemoglobin 8.8, white blood cell count 6.7. IMAGING DATA: Chest x-ray shows mild interstitial infiltrate. ASSESSMENT AND PLAN: * End-stage renal disease. * Uncontrolled hypertension. * Mild pulmonary edema. * Back pain, rule out fractures. * Diabetes mellitus. * Anemia of renal disease. The patient will be scheduled to have dialysis in the next 24 hours. Hopefully, today I will order removal of 3 liters of fluid, which should improve her oxygenation and blood pressure. She can resume her home blood pressure medications, pain management and diagnostic workup for the back pain as per admitting team. Thank you for the consultation. MD VELVET Grubbs/RENETTA/INA TID: [id number] RECEIPT: [id number]
--- NOTE | 2025-01-27 16:02 | DVHPN2 ---
Subjective I am assuming the care of the patient from today onwards who was under the care of the hospitalist team. Patient denies any complaints. Changes from previous H/P or p: No Changes Respiratory: Shortness of breath Musculoskeletal: back pain Objective Vitals Vital Signs Date Time Temp Pulse Resp B/P (MAP) Pulse Ox O2 Delivery O2 Flow Rate FiO2 01/27/25 12:49 98.7 58 22 168/78 (108) 98 98.7 01/27/25 09:34 Nasal Cannula* 3 32 Intake/Output Intake and Output 01/27/25 07:00 Intake Total 120 ml Balance 120 ml Intake Oral 120 ml # Voids 2 Exam HEENT pupils are reactive Neck is supple CV is S1-S2 regular rate and rhythm Respiratory diminished breath sounds bases GI positive bowel sound Extremity no edema [employer] no motor deficit Medications Current Medications Medications Dose Ordered Sig/Carito Route Start Time Stop Time Status Last Admin Dose Admin Furosemide 40 mg BIDD IV 01/26/25 18:00 01/27/25 06:02 40 MG Ceftriaxone Sodium 50 ml @ 100 mls/hr DAILY@09 IV 01/27/25 09:00 01/27/25 10:30 100 MLS/HR Acetaminophen/ Hydrocodone Bitart 1 tab Q4HP PRN PO 01/26/25 16:45 Ondansetron HCl 4 mg Q4HP PRN IV 01/26/25 16:45 Acetaminophen 650 mg Q6HP PRN PO 01/26/25 16:45 Carvedilol 3.125 mg BID PO 01/26/25 22:00 01/27/25 10:29 3.125 MG Fluoxetine HCl 20 mg DAILY PO 01/27/25 10:00 01/27/25 10:29 20 MG Atorvastatin Calcium 80 mg HS PO 01/26/25 22:00 01/26/25 21:43 80 MG Hydralazine HCl 50 mg TID PRN PO 01/26/25 16:45 01/26/25 22:16 50 MG Diagnostic Test (Pha) 1 strip ACHS 01/26/25 17:00 01/27/25 11:31 1 STRIP Insulin Human Regular ACHS SC 01/26/25 17:00 01/26/25 21:47 2 UNITS Dextrose 50 ml UD PRN IV 01/26/25 16:45 Albuterol 2.5 mg Q4HPRN PRN NEB 01/26/25 16:45 Ipratropium [place] 0.5 mg Q4HPRN PRN NEB 01/26/25 16:45 Laboratory Results Laboratory Tests 01/27/25 04:54 Chemistry Test 01/27/25 04:54 Albumin 3.7 g/dL (3.2-4.8) Calcium Level 8.7 mg/dL (8.7-10.4) Total Protein 6.9 g/dL (5.7-8.2) LFT Test 01/27/25 04:54 Alanine Aminotransferase (ALT) < 9 U/L (7-40) Alkaline Phosphatase 95 U/L (46-116) Aspartate Amino Transferase (AST) 12 U/L (13-40) L Total Bilirubin 0.6 mg/dL (0.2-1.0) Urinalysis Test 01/26/25 15:25 Urine Color Light-yellow (Yellow) Urine Clarity Turbid (Clear) H Urine pH 8.5 (5.0-9.0) Urine Specific [place] 1.007 (1.001-1.035) Urine Protein 3+ (Negative) H Urine Ketones Negative (Negative) Urine Blood Negative /uL (Negative) Urine Nitrite Negative (Negative) Urine Bilirubin Negative (Negative) Urine Urobilinogen Normal mg/dL (Negative) Urine Leukocyte Esterase 2+ /uL (Negative) Urine RBC 1 /hpf (0 - 4) Urine Microscopic WBC 15 /HPF (0-5) H Urine Squamous Epithelial Cells Mod /hpf (<5) Urine Bacteria Few /hpf (None Seen) H Urine Glucose 1+ mg/dL (Normal) H Assessment/Plan Assessment/Plan 64-year-old female with a known history of chronic back pain, diabetes mellitus type 2, hypertension, dyslipidemia, history of CVA without any residual deficit, end-stage renal disease on hemodialysis who initially presented to the hospital with a intractable back pain found to have 1. Hypertensive urgency 2. End-stage renal disease on hemodialysis 3. Acute on chronic back pain 4. Diabetes mellitus type 2 5. Morbid obesity class I 6. Dyslipidemia 7. History of CVA without any residual deficit -hemodialysis per Nephrology, pain management -physical therapy evaluation and treatment. Plan discussed with: Patient Date of Service: Jan 27, 2025 Billing Provider: DEVONTE BOLDEN MD Common Visit Codes: [id number] INP/OBS CARE(MOD) DEVONTE BOLDEN MD Jan 27, 2025 16:02
[2025-01-28] VITALS (8 sets, daily range): BP systolic 142–197; BP diastolic 66–81; PULSE 56–66; RESP 12–18; TEMP 36.8; O2SAT 95–98
[2025-01-28] MEDS ORDERED: SODIUM CHL 0.9% 1000 ML BAG XX ONE (07:00)
--- NOTE | 2025-01-28 11:06 | DVHPN2 ---
Progress Note - Dictate Date Seen: Jan 28, 2025 Has the PT tested + for MRSA If YES, has PT been informed?: No Medical Necessity Reason Pt with a Central, PICC or Fol: No Subjective Patient feels fine She is getting dialysis at the time of my visit vital signs Vital Sign Date Time Temp Pulse Resp B/P (MAP) Pulse Ox O2 Delivery O2 Flow Rate FiO2 01/28/25 09:22 97 Nasal Cannula 3.0 01/28/25 09:22 32 01/28/25 09:00 98.5 66 12 197/81 (119) 98.5 Total Intake and Output 01/27/25 01/27/25 01/28/25 15:00 23:00 07:00 Intake Total 50 ml 300 ml 460 ml Balance 50 ml 300 ml 460 ml medications Current Medications Medications Dose Ordered Sig/Carito Route Start Time Stop Time Status Last Admin Dose Admin Furosemide 40 mg BIDD IV 01/26/25 18:00 01/28/25 06:08 40 MG Ceftriaxone Sodium 50 ml @ 100 mls/hr DAILY@09 IV 01/27/25 09:00 01/27/25 10:30 100 MLS/HR Acetaminophen/ Hydrocodone Bitart 1 tab Q4HP PRN PO 01/26/25 16:45 Ondansetron HCl 4 mg Q4HP PRN IV 01/26/25 16:45 Acetaminophen 650 mg Q6HP PRN PO 01/26/25 16:45 Carvedilol 3.125 mg BID PO 01/26/25 22:00 01/27/25 10:29 3.125 MG Fluoxetine HCl 20 mg DAILY PO 01/27/25 10:00 01/27/25 10:29 20 MG Atorvastatin Calcium 80 mg HS PO 01/26/25 22:00 01/27/25 21:36 80 MG Hydralazine HCl 50 mg TID PRN PO 01/26/25 16:45 01/27/25 21:36 50 MG Diagnostic Test (Pha) 1 strip ACHS 01/26/25 17:00 01/28/25 07:01 1 STRIP Insulin Human Regular ACHS SC 01/26/25 17:00 01/27/25 21:39 3 UNITS Dextrose 50 ml UD PRN IV 01/26/25 16:45 Albuterol 2.5 mg Q4HPRN PRN NEB 01/26/25 16:45 Ipratropium [place] 0.5 mg Q4HPRN PRN NEB 01/26/25 16:45 objective GENERAL: The patient is alert and oriented x3, in no acute distress. HEENT: Unremarkable. NECK: There is no jugular venous distention. LUNGS: Show a few scattered crackles at the bases. CARDIOVASCULAR: Shows regular rate with S4 gallop, 1/6 systolic murmur. ABDOMEN: Soft, nondistended. Bowel sounds with normal intensity and frequency. EXTREMITIES: Show no edema. NEUROLOGIC: Nonfocal. laboratory and microbiology Laboratory Tests 01/27/25 04:54 Test 01/27/25 04:54 Range/Units Serum Glucose 90 74-106 mg/dL Assessment/Plan ASSESSMENT AND PLAN: * End-stage renal disease, stable * Uncontrolled hypertension. * Mild pulmonary edema. * Back pain, resolved. * Diabetes mellitus. * Anemia of renal disease. Patient is getting HD at this time We will remove 3 L of fluid, which will assist in lowering her blood pressure She can resume her home blood pressure medications Carvedilol, nifedipine, losartan Dc planning Plan discussed with: Patient LARS RIZZO MD Jan 28, 2025 11:06
[2025-01-28] MEDS ORDERED: LOSA-534 PO (16:32)
[2025-01-28] MEDS ORDERED: CEFD300C2 PO (16:32)
[2025-01-28] MEDS ORDERED: NIFE1TAB31 PO (16:32)
--- NOTE | 2025-01-28 16:45 | DVHDS2 ---
Discharge Summary Date of Admission Jan 26, 2025 at 16:39 Date of Discharge: Jan 28, 2025 Labs/Diagnostic Data: Laboratory Results Test 01/28/25 05:55 01/27/25 04:54 01/26/25 15:27 01/26/25 15:25 POC Glucose 97 mg/dl (70-106) White Blood Count 6.7 10^3/uL (4.4-10.8) Red Blood Count 2.71 10^6/uL (4.0-5.20) Hemoglobin 8.8 g/dL (12.2-16.2) Hematocrit 26.2 % (36.0-46.0) Mean Corpuscular Volume 96.6 fL (80.0-100.0) Mean Corpuscular Hemoglobin 32.5 pg (28.0-32.0) Mean Corpuscular Hemoglobin Concent 33.7 g/dL (32.0-36.0) Red Cell Distribution Width 14.5 % (11.8-14.3) Platelet Count 195 10^3/uL (140-450) Mean Platelet Volume 9.1 fL (6.9-10.8) Neutrophils (%) (Auto) 58.9 % (37.0-80.0) Lymphocytes (%) (Auto) 26.0 % (10.0-50.0) Monocytes (%) (Auto) 10.9 % (0.0-12.0) Eosinophils (%) (Auto) 3.0 % (0.0-7.0) Basophils (%) (Auto) 1.2 % (0.0-2.0) Neutrophils # (Auto) 3.9 10 ^3/uL (1.6-8.6) Lymphocytes # (Auto) 1.7 10 ^3/uL (0.4-5.4) Monocytes # (Auto) 0.7 10 ^3/uL (0-1.3) Eosinophils # (Auto) 0.2 10 ^3/uL (0-0.8) Basophils # (Auto) 0.1 10 ^3/uL (0-0.2) Nucleated Red Blood Cells 0.1 % Sodium Level 139 mmol/L (136-145) Potassium Level 4.3 mmol/L (3.5-5.1) Chloride Level 94 mmol/L (98-107) Carbon Dioxide Level 31 mmol/L (20-31) Anion Gap 14 (5-15) Blood Urea Nitrogen 18 mg/dL (9-23) Creatinine 5.08 mg/dL (0.550-1.02) Glomerular Filtration Rate Calc 9 mL/min (>90) BUN/Creatinine Ratio 3.5 (10.0-20.0) Serum Glucose 90 mg/dL (74-106) Calcium Level 8.7 mg/dL (8.7-10.4) Total Bilirubin 0.6 mg/dL (0.2-1.0) Aspartate Amino Transferase (AST) 12 U/L (13-40) Alanine Aminotransferase (ALT) < 9 U/L (7-40) Alkaline Phosphatase 95 U/L (46-116) Total Protein 6.9 g/dL (5.7-8.2) Albumin 3.7 g/dL (3.2-4.8) Troponin I High Sensitivity 15 ng/L (</=34) Urine Color Light-yellow (Yellow) Urine Clarity Turbid (Clear) Urine pH 8.5 (5.0-9.0) Urine Specific [place] 1.007 (1.001-1.035) Urine Protein 3+ (Negative) Urine Ketones Negative (Negative) Urine Blood Negative /uL (Negative) Urine Nitrite Negative (Negative) Urine Bilirubin Negative (Negative) Urine Urobilinogen Normal mg/dL (Negative) Urine Leukocyte Esterase 2+ /uL (Negative) Urine RBC 1 /hpf (0 - 4) Urine Microscopic WBC 15 /HPF (0-5) Urine Squamous Epithelial Cells Mod /hpf (<5) Urine Bacteria Few /hpf (None Seen) Urine Glucose 1+ mg/dL (Normal) Test 01/26/25 11:50 Hemoglobin A1c 6.1 % A1C (<5.7) Lactic Acid Level 1.5 mmol/L (0.4-2.0) B-Type Natriuretic Peptide 719.83 pg/mL (0-100) Other Laboratory Tests 01/27/25 04:54 Brief Hx & Hospital Course: 64-year-old female with a known history of chronic back pain, diabetes mellitus type 2, hypertension, dyslipidemia, history of CVA without any residual deficit, end-stage renal disease on hemodialysis who initially presented to the hospital with a intractable back pain found to have hypertensive urgency. Patient was also fluid overload requiring hemodialysis. Patient is found to have mild UTI which was treated with the IV ceftriaxone. Patient's did qualify for wheelchair/walker. pupil personnel services director has been consulted. Patient's blood pressure was uncontrolled nephrology recommended nifedipine which was started. Patient is being discharged under stable condition with a close follow up as an outpatient with the PCP and Nephrology. Condition at Discharge: Stable Final Diagnosis/Problems List 64-year-old female with a known history of chronic back pain, diabetes mellitus type 2, hypertension, dyslipidemia, history of CVA without any residual deficit, end-stage renal disease on hemodialysis who initially presented to the hospital with a intractable back pain found to have 1. Hypertensive urgency 2. End-stage renal disease on hemodialysis 3. Acute on chronic back pain 4. Diabetes mellitus type 2 5. Morbid obesity class I 6. Dyslipidemia 7. History of CVA without any residual deficit Discharge Disposition: Home with [facility] Services [facility] Discharge Will this Physician continue t: No Discharge Instruct/Medications Diet: Cardiac 2g Na,low cholest Activity: No Restrictions, As Tolerated Follow Up/Referral: Please follow up with the PCP in 1-2 weeks Follow up with the Dr. Mcguire nib inspector in one week Medications: Medication as prescribed, resume home medications. New Medications: Cefdinir (Cefdinir) 300 Mg Cap 1 CAP PO BID for 3 Days, #6 CAP Nifedipine (Nifedipine Er) 30 Mg Tab 1 TAB PO DAILY, #30 TAB 3 Refills Losartan Potassium (Losartan Potassium) 50 Mg Tab 50 MG PO DAILY, #30 TAB Continued Medications: Acetaminophen (Tylenol) 325 Mg Cap 325 MG PO, CAP Atorvastatin Calcium (Atorvastatin Calcium) 80 Mg Tab 1 TAB PO DAILY Carvedilol (Carvedilol) 3.125 Mg Tab 1 TAB PO BID Fluoxetine HCl (Fluoxetine HCl) 20 Mg Cap 1 CAP PO DAILY Hydralazine Hcl (Hydralazine Hcl) 50 Mg Tab 1 TAB PO TID Scheduled Atorvastatin Calcium (Atorvastatin Calcium), 1 TAB PO DAILY, (Reported) Carvedilol (Carvedilol), 1 TAB PO BID, (Reported) Cefdinir (Cefdinir), 1 CAP PO BID Fluoxetine HCl (Fluoxetine HCl), 1 CAP PO DAILY, (Reported) Hydralazine Hcl (Hydralazine Hcl), 1 TAB PO TID, (Reported) Losartan Potassium (Losartan Potassium), 50 MG PO DAILY Nifedipine (Nifedipine Er), 1 TAB PO DAILY Miscellaneous Medications Acetaminophen (Tylenol), 325 MG PO, (Reported) Discharge Statement: "Patient was advised to return to the ER or call 911 if any headaches, dizziness, shortness of breath, chest pain, abdominal pain, bleeding, fevers, or worsening of medical condition. Patient was counseled about treatment plan, medications, possible side effects, patientverbalized understanding. All questions were answered to the best of my ability. This discharge took greater then 30 minutes in planning, reviewing documentation, counseling the patient, and discussing with other team members." ASSESSMENT ASSESSMENT Assessment 64-year-old female with a known history of chronic back pain, diabetes mellitus type 2, hypertension, dyslipidemia, history of CVA without any residual deficit, end-stage renal disease on hemodialysis who initially presented to the hospital with a intractable back pain found to have 1. Hypertensive urgency 2. End-stage renal disease on hemodialysis 3. Acute on chronic back pain 4. Diabetes mellitus type 2 5. Morbid obesity class I 6. Dyslipidemia 7. History of CVA without any residual deficit Date of Service: Jan 28, 2025 Billing Provider: DEVONTE BOLDEN MD Common Visit Codes: 83439-SMY/OBS DISCH DAY >30min DEVONTE BOLDEN MD Jan 28, 2025 16:45
[2025-01-28] MEDS ORDERED: EPOETIN ALFA-EPBX 4,000 UNIT/ML VIAL SC ONE (21:00)
[2025-01-29 10:59] LABS: Hepatitis B Surface Antigen Negative (Negative)
[2025-01-29 11:15] LABS: Hepatitis C Antibody Negative (Negative)
[2025-01-29] MEDS ORDERED: LOSARTAN POTASSIUM 50 MG TAB PO SCH (16:00)
== END 2025-01-28 19:26 | disposition home or self-care (01) | DRG 640 ==
LOC: ER 11:11 → OVERFLOW 16:39 → WEST WING 18:51
DX: E87.70 Fluid overload, unspecified (principal); J96.01 Acute respiratory failure with hypoxia; N18.6 End stage renal disease; N39.0 Urinary tract infection, site not specified; I13.2 Hypertensive heart and chronic kidney disease with heart failure and with stage 5 chronic kidney disease, or end stage renal disease; I16.0 Hypertensive urgency; Z99.2 Dependence on renal dialysis; I50.9 Heart failure, unspecified; E66.01 Morbid (severe) obesity due to excess calories; E11.22 Type 2 diabetes mellitus with diabetic chronic kidney disease; Z68.32 Body mass index [BMI] 32.0-32.9, adult; E66.811 Obesity, class 1; G89.29 Other chronic pain; N20.0 Calculus of kidney; E78.5 Hyperlipidemia, unspecified; Z86.73 Personal history of transient ischemic attack (TIA), and cerebral infarction without residual deficits; Z83.3 Family history of diabetes mellitus; Z82.49 Family history of ischemic heart disease and other diseases of the circulatory system
CPT/HCPCS: 36415; 71045; 72100; 74176; 76775; 80053; 81001; 82962; 83036; 83605; 83880; 84484; 85025; 86803; 87340; 90935; 93005; 99291; G0378; J1815; J2405

== ENCOUNTER 2025-01-30 19:37 | Inpatient (IN) | payer MEDICARE, MEDICAID ==
[~2025-01-30] VITALS: Ht 186.9 cm; Wt 74.7 kg
[~2025-01-30 19:37] MED LIST: ACET1CAP14 PO; ATOR-47 PO; CARV3.1240 PO; CEFD300C2 PO; FLUO-470 PO; HYDR50TA47 PO; LOSA-534 PO; NIFE1TAB31 PO
--- NOTE | 2025-01-30 20:03 | ED.PDOC ---
History of Present Illness HPI Comments 64 y/o F, with PMHx of DM, ESRD, PULMONARY EDEMA, and ANEMIA presents to the ED for CC of back pain. Per patient's daughter, patient has been experiencing right-sided flank/back pain x2days. Patient was recently discharge from [facility] on 01/28/25 and imaging study of the abdomen pelvis on 01/26/25 "showed 6 mm n onobstructive right kidney stone, with no hydronephrosis seen". At this time patient c/o 02/02 right sided flank pain worsening with ambulation. Patient denies fever, chills, nausea, vomiting, or urinary symptoms. Chief Complaint: Back Pain Time Seen by MD: 19:50 Reviewed Notes: Nurses Notes, Medications, Allergies Allergies: Coded Allergies: NO KNOWN ALLERGIES (Unverified , 01/10/25) Home Meds Active Scripts Cefdinir (Cefdinir) 300 Mg Cap, 1 CAP PO BID for 3 Days, #6 CAP Prov:DEVONTE BOLDEN MD 01/28/25 Nifedipine (Nifedipine Er) 30 Mg Tab, 1 TAB PO DAILY, #30 TAB 3 Refills Prov:DEVONTE BOLDEN MD 01/28/25 Losartan Potassium (Losartan Potassium) 50 Mg Tab, 50 MG PO DAILY, #30 TAB Prov:DEVONTE BOLDEN MD 01/28/25 Reported Medications Acetaminophen (Tylenol) 325 Mg Cap, 325 MG PO, CAP 01/26/25 Carvedilol (Carvedilol) 3.125 Mg Tab, 1 TAB PO BID 01/26/25 Fluoxetine HCl (Fluoxetine HCl) 20 Mg Cap, 1 CAP PO DAILY 01/26/25 Atorvastatin Calcium (ATORVASTATIN CALCIUM) 80 Mg Tab, 1 TAB PO DAILY 01/26/25 Hydralazine Hcl (Hydralazine Hcl) 50 Mg Tab, 1 TAB PO TID 01/26/25 Information Source: Patient, Relative (Child) Mode of Arrival: Ambulatory Severity: Moderate Timing: Days Duration: Since onset Prehospital treatment: None Past Medical History PAST MEDICAL HISTORY: Anemia, DM, ESRD Surgical History: Denies all surgeries SOLIDWORKS DRAFTER History: Denies all SOLIDWORKS DRAFTER Hx Family History Family History: Unknown Social History Smoker: Non-Smoker Alcohol: Denies ETOH Use Drugs: Denies Drug Use Lives In: Home Constitutional: denies: chills, diaphoresis, fatigue, fever, malaise, sweats, weakness, others EENTM: denies: blurred vision, double vision, ear bleeding, ear discharge, ear drainage, ear pain, ear ringing, eye pain, eye redness, hearing loss, mouth pain, mouth swelling, nasal discharge, nose bleeding, nose congestion, nose pain, photophobia, tearing, throat pain, throat swelling, voice changes, others Respiratory: denies: cough, hemoptysis, orthopnea, SOB at rest, shortness of breath, SOB with excertion, stridor, wheezing, others Cardiovascular: denies: chest pain, dizzy spells, diaphoresis, Dyspnea on exer tion, edema, irregular heart beat, left arm pain, lightheadedness, palpitations, PND, syncope, others Gastrointestinal: denies: abdomen distended, abdominal pain, blood streaked bowels, constipated, diarrhea, dysphagia, difficulty swallowing, hematemesis, melena, nausea, poor appetite, poor fluid intake, rectal bleeding, rectal pain, vomiting, others Genitourinary: reports: flank pain; denies: abnormal vagina bleeding, burning, dyspareunia, dysuria, frequency, hematuria, incontinence, pain, , vagina discharge, urgency, others Neurological: denies: dizziness, fainting, headache, left sided numbness, left sided weakness, numbness, paresthesia, pre-existing deficit, right sided numbness, right sided weakness, seizure, speech problems, tingling, tremors, weakness, others Musculoskeletal: reports: back pain; denies: gout, joint pain, joint swelling, muscle pain, muscle stiffness, neck pain, others Integumetry: denies: bruises, change in color, change in hair/nails, dryness, laceration, lesions, lumps, rash, wounds, others Allergic/Immunocompromised: denies: Difficulty Healing, Frequent Infections, Hives, Itching, others Hematologic/Lymphatic: denies: anemia, blood clots, easy bleeding, easy bruising, swollen glands, others Endocrine: denies: excessive hunger, excessive sweating, excessive thirst, excessive urination, flushing, intolerance to cold, intolerance to heat, unexplained weight gain, unexplained weight loss, others Psychiatric: denies: anxiety, bipolar disorder, depression, hopeless, panic disorder, schizophrenia, sleepless, suicidal, others All Other Systems: Reviewed and Negative Physical Exam General Appearance: Moderate Distress, Normal HEENT: Normal ENT Inspection, Pharynx Normal Neck: Full Range of Motion, Non-Tender, Normal, Normal Inspection Respiratory: Chest Non-Tender, Lungs Clear, No Accessory Muscle Use, No Respiratory Distress, Normal Breath Sounds Cardiovascular: No Edema, No Murmur, No Gallop, Normal Peripheral Pulses, Regular Rate/Rhythm Breast Exam: Deferred Gastrointestinal: No Organomegaly, Non Tender, No Pulsatile Mass, Normal Bowel Sounds, Soft Genitalia: Deferred Pelvic: Deferred Rectal: Deferred Extremities: No calf tenderness, Normal capillary refill, Normal inspection, Normal range of motion, Non-tender, No pedal edema Musculoskeletal : Location: Right Extremity Location: Back Apperance: Tenderness Neurologic: Alert, digital service engineer II-XII nml as Tested, No Motor Deficits, Normal Affect, Normal Mood, No Sensory Deficits Cerebellar Function: Normal Reflexes: Normal Skin: Dry, Normal Color, Warm Lymphatic: No Adenopathy Was a procedure done? Was a procedure done?: No Differential Dx Considerations may include: UROLITHIASIS, UTI, PYELONEPHRITIS X-Ray, Labs, Meds, VS Vital Signs Date Time Temp Pulse Resp B/P (MAP) Pulse Ox O2 Delivery O2 Flow Rate FiO2 01/30/25 19:56 64 20 95 Room Air 01/30/25 19:56 97.2 64 20 211/60 (110) 95 97.2 01/30/25 19:40 97.7 61 20 185/55 93 97.7 Lab Test 01/30/25 20:06 Range/Units White Blood Count 6.4 4.4-10.8 10^3/uL Red Blood Count 3.03 L 4.0-5.20 10^6/uL Hemoglobin 9.9 L 12.2-16.2 g/dL Hematocrit 28.7 L 36.0-46.0 % Mean Corpuscular Volume 94.8 80.0-100.0 fL Mean Corpuscular Hemoglobin 32.7 H 28.0-32.0 pg Mean Corpuscular Hemoglobin Concent 34.5 32.0-36.0 g/dL Red Cell Distribution Width 15.1 H 11.8-14.3 % Platelet Count 238 140-450 10^3/uL Mean Platelet Volume 8.4 6.9-10.8 fL Neutrophils (%) (Auto) 55.7 37.0-80.0 % Lymphocytes (%) (Auto) 29.0 10.0-50.0 % Monocytes (%) (Auto) 10.2 0.0-12.0 % Eosinophils (%) (Auto) 3.3 0.0-7.0 % Basophils (%) (Auto) 1.8 0.0-2.0 % Neutrophils # (Auto) 3.5 1.6-8.6 10 ^3/uL Lymphocytes # (Auto) 1.8 0.4-5.4 10 ^3/uL Monocytes # (Auto) 0.6 0-1.3 10 ^3/uL Eosinophils # (Auto) 0.2 0-0.8 10 ^3/uL Basophils # (Auto) 0.1 0-0.2 10 ^3/uL Nucleated Red Blood Cells 0.0 % Sodium Level 137 136-145 mmol/L Potassium Level 3.9 3.5-5.1 mmol/L Chloride Level 93 L 98-107 mmol/L Carbon Dioxide Level 31 20-31 mmol/L Anion Gap 13 5-15 Blood Urea Nitrogen 7 L 9-23 mg/dL Creatinine 2.79 #H 0.550-1.02 mg/dL Glomerular Filtration Rate Calc 18 >90 mL/min BUN/Creatinine Ratio 2.5 L 10.0-20.0 Serum Glucose 109 H 74-106 mg/dL Calcium Level 9.3 8.7-10.4 mg/dL Total Bilirubin 0.7 0.2-1.0 mg/dL Aspartate Amino Transferase (AST) 13 13-40 U/L Alanine Aminotransferase (ALT) < 9 7-40 U/L Alkaline Phosphatase 104 46-116 U/L Total Protein 8.2 5.7-8.2 g/dL Albumin 4.5 3.2-4.8 g/dL X-Ray, Labs, Meds, VS Comment No obvious signs of a kidney stone on CT Patient's labs show no obvious elevated white count but she does have chronic anemia Patient will be admitted for her intractable pain of the right flank Patient will be started with pain medication via IV Patient hemodynamically stable Time of 1ST Reevaluation: 20:20 Reevaluation 1ST: Unchanged Patient Education/Counseling: Diagnosis, Treatment Family Education/Counseling: No Family Present SEPSIS Sepsis Screen Date sepsis recognized/suspect: Jan 30, 2025 Time Sepsis recognized/suspect: 1943 Recent Procedure: No On Antibiotic Therapy: No Respiratory Rate >20: No Heart Rate >90: No Temp<36 C (96.8 F) or >38.3 C: No SBP <90 or MAP <65 mmHG: No New Acute Mental Status Change: No Is the patient on CPAP, BIPAP,: No Physician Orders Urinalysis (01/30/25 19:55) Ct Ab Pel Wo Con-No Oral Or Iv (01/30/25 19:55) Vital Signs Date Time Temp Pulse Resp B/P (MAP) Pulse Ox O2 Delivery O2 Flow Rate FiO2 01/30/25 19:56 64 20 95 Room Air 01/30/25 19:56 97.2 64 20 211/60 (110) 95 97.2 01/30/25 19:40 97.7 61 20 185/55 93 97.7 Laboratory Tests Test 01/30/25 20:06 White Blood Count 6.4 10^3/uL (4.4-10.8) Departure 1 Departure Time of Disposition: 21:46 Impression: Primary Impression: Anemia Qualified Codes: D50.0 - Iron deficiency anemia secondary to blood loss (chronic) Additional Impressions: Dyspnea Qualified Codes: R06.09 - Other forms of dyspnea End-stage renal disease on hemodialysis Right flank pain Intractable pain Disposition: ADMITTED INPATIENT Condition: Stable Discharged With: Self Critical Care Note Critical Care Time?: No Stability Stability form required: No Heart Score Heart Score: Heart Score Response (Comments) Value History N/A 0 EKG N/A 0 Age N/A 0 Risk Factors N/A 0 Troponin N/A 0 Total 0 I personally scribed for ELMA SOW ([email or web address]) on 01/30/25 at 20:03. Electronically submitted by Gilma Baltazar ([email or web address]). ELMA SOW Jan 30, 2025 20:03
[2025-01-30 20:15] LABS: Hematocrit 28.7 % (36.0-46.0); Hemoglobin 9.9 g/dL (12.2-16.2); Mean Corpuscular Hemoglobin 32.7 pg (28.0-32.0); Mean Corpuscular Volume 94.8 fL (80.0-100.0); Nucleated Red Blood Cells % 0.0 %
[2025-01-30 20:36] LABS: Albumin 4.5 g/dL (3.2-4.8); Alkaline Phosphatase 104 U/L (46-116); Anion Gap 13 (5-15); BUN/Creatinine Ratio 2.5 (10.0-20.0); Calcium 9.3 mg/dL (8.7-10.4); Carbon Dioxide 31 mmol/L (20-31); Potassium 3.9 mmol/L (3.5-5.1); Sodium 137 mmol/L (136-145); Total Protein 8.2 g/dL (5.7-8.2)
[2025-01-30 20:37] LABS: Bilirubin, Total 0.7 mg/dL (0.2-1.0)
[2025-01-30 20:44] LABS: Alanine Aminotransferase < 9 U/L (7-40); Blood Urea Nitrogen 7 mg/dL (9-23); Chloride 93 mmol/L (98-107); Glucose 109 mg/dL (74-106)
--- NOTE | 2025-01-30 20:44 | DVH ---
CLINICAL HISTORY: flank pain TECHNIQUE: CT of the abdomen and pelvis was performed without IV contrast. This exam was performed ac cording to our departmental dose optimization program. Up-to-date CT equipment and radiation dose red uction techniques are utilized as appropriate. CTDI 12.4 DLP 579 COMPARISON: CT CT AB PEL WO CON-NO ORAL OR IV on DOS: 01/26/25 FINDINGS: Abdomen/Pelvis: The spleen, pancreas, adrenal glands, gallbladder, liver, bladder, and uterus are grossly unremarkabl e. The bilateral kidneys appear mildly atrophic with cortical thinning. The abdominal aorta is normal in course and caliber. There are mild aortic atherosclerotic calcificat ions. There are advanced atherosclerotic calcifications of aortic branch vessels and arterial vessels within imaged proximal or extremities. There is no free intraperitoneal air or fluid. There is no enlarged abdominal pelvic lymph node. There is no bowel wall thickening or dilatation. The appendix is normal. Minimal colonic diverticulos is. Other: The imaged lower thorax demonstrate breathing changes and diffuse ground-glass changes. The heart is moderately enlarged coronary artery calcifications. No acute osseous abnormality is evident. Impression: No acute noncontrast CT abnormality in the abdomen or pelvis. Moderate cardiomegaly with coronary artery calcifications. Diffuse ground-glass appearance of the jw g most likely relates to breathing changes and/or reactive airway disease / air trapping. Minimal colonic diverticulosis. Mildly atrophic kidneys with cortical thinning.
[2025-01-30] MEDS ORDERED: MORPHINE SULFATE INJ 2 MG/ml SYRG IV PRN (23:30)
--- NOTE | 2025-01-30 23:37 | DVHHPRES ---
History of Present Illness Resident Creating Document: RADHA ALMONTE History of Present Illness Ms. Lynn is a 64 year old female with prior medical history of type 2 diabetes mellitus, ESRD on hemodialysis on schedule, hypertension, and ischemic stroke in 2014 with remaining weakness in the right leg, who presents today accompanied by her daughter, Tasha, with chief complaint of back pain. The patient's daughter states the patient has been complaining of right flank pain for the last week described as sharp, non-radiating, 8/10, without aggravating or relieving factors. She denies nausea, vomiting, fever, hematuria, chest pain, and shortness of breath. She was discharged from this institution on 01/28/2025 due to back pain, hypertensive urgency, and UTI. Due to persistence of symptoms, she sought medical attention in the emergency department. on evaluation in the ED, the patient was hypertensive, other vitals are within normal range. Initial labs show normocytic anemia and creatinine 2.79. Abdominal CT from today shows no acute non-contrast CT abnormality in the abdomen or pelvis. she was started on IV pain medication, IV antibiotics and Flomax. She was admitted for further workup and monitoring. 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 HEENT: Denies changes in vision and hearing. Respiratory: Denies shortness of breath and cough Cardiovascular: Denies chest discomfort or palpitations GI: Refers right flank pain, Denies abdominal distention, diarrhea : Denies dysuria and urinary frequency. Musculoskeletal: Denies symptoms Skin: Denies rash and pruritus. Neurological: denies dizziness headache vision or hearing problems Allergies: Coded Allergies: NO KNOWN ALLERGIES (Unverified , 01/10/25) Medications Current Medications Medications Dose Ordered Sig/Carito Route Start Time Stop Time Status Last Admin Dose Admin Morphine Sulfate 2 mg Q4HPRN PRN IV 01/30/25 23:30 Carvedilol 3.125 mg BID PO 01/31/25 10:00 Losartan Potassium 50 mg DAILY PO 01/31/25 10:00 Nifedipine 30 mg DAILY PO 01/31/25 10:00 Patient Own Medication 1 tab DAILY PO 10/8/25 10:00 UNV Patient Own Medication 1 tab TID PO 01/31/25 06:00 UNV Fluoxetine HCl 20 mg DAILY PO 01/31/25 10:00 Tamsulosin HCl 0.4 mg QPM PO 01/31/25 18:00 UNV Ceftriaxone Sodium 50 ml @ 100 mls/hr DAILY@09 IV 01/30/25 23:30 UNV Exam Vital Signs Vital Signs Date Time Temp Pulse Resp B/P (MAP) Pulse Ox O2 Delivery O2 Flow Rate FiO2 01/30/25 19:56 64 20 95 Room Air 01/30/25 19:56 97.2 211/60 (110) 97.2 Exam General: The patient alert and oriented in person place and time. Patient following commands HEENT: Normocephalic, atraumatic, normal reactive pupils, EOM intact, pink conjunctiva, pink moist mucous membrane Respiratory/pulmonary: Bilateral chest expansion, no pain on palpation of chest wall, clear lungs bilaterally, vesicular murmurs present in almost all lung subramanian, no associated crackles or wheezes. Cardiovascular: Normal RRR, normal S1 and S2, no murmurs Abdomen: Abdomen nondistended, normal bowel sounds, soft, pain in right flank, CVA tenderness present, no palpable masses. Extremities: No deformities, there is no peripheral edema present at the lower extremities, normal pulses, presence of hemodialysis AV fistula on inner surface of left arm bruit and thrills present Skin: No rashes or pruritus, there is no sacral edema present at this time. Neurological: Intact cranial nerves with no focal neurologic deficits Labs/Xrays Labs Test 01/30/25 20:06 Range/Units White Blood Count 6.4 4.4-10.8 10^3/uL Red Blood Count 3.03 L 4.0-5.20 10^6/uL Hemoglobin 9.9 L 12.2-16.2 g/dL Hematocrit 28.7 L 36.0-46.0 % Mean Corpuscular Volume 94.8 80.0-100.0 fL Mean Corpuscular Hemoglobin 32.7 H 28.0-32.0 pg Mean Corpuscular Hemoglobin Concent 34.5 32.0-36.0 g/dL Red Cell Distribution Width 15.1 H 11.8-14.3 % Platelet Count 238 140-450 10^3/uL Mean Platelet Volume 8.4 6.9-10.8 fL Neutrophils (%) (Auto) 55.7 37.0-80.0 % Lymphocytes (%) (Auto) 29.0 10.0-50.0 % Monocytes (%) (Auto) 10.2 0.0-12.0 % Eosinophils (%) (Auto) 3.3 0.0-7.0 % Basophils (%) (Auto) 1.8 0.0-2.0 % Neutrophils # (Auto) 3.5 1.6-8.6 10 ^3/uL Lymphocytes # (Auto) 1.8 0.4-5.4 10 ^3/uL Monocytes # (Auto) 0.6 0-1.3 10 ^3/uL Eosinophils # (Auto) 0.2 0-0.8 10 ^3/uL Basophils # (Auto) 0.1 0-0.2 10 ^3/uL Nucleated Red Blood Cells 0.0 % Sodium Level 137 136-145 mmol/L Potassium Level 3.9 3.5-5.1 mmol/L Chloride Level 93 L 98-107 mmol/L Carbon Dioxide Level 31 20-31 mmol/L Anion Gap 13 5-15 Blood Urea Nitrogen 7 L 9-23 mg/dL Creatinine 2.79 #H 0.550-1.02 mg/dL Glomerular Filtration Rate Calc 18 >90 mL/min BUN/Creatinine Ratio 2.5 L 10.0-20.0 Serum Glucose 109 H 74-106 mg/dL Calcium Level 9.3 8.7-10.4 mg/dL Total Bilirubin 0.7 0.2-1.0 mg/dL Aspartate Amino Transferase (AST) 13 13-40 U/L Alanine Aminotransferase (ALT) < 9 7-40 U/L Alkaline Phosphatase 104 46-116 U/L Total Protein 8.2 5.7-8.2 g/dL Albumin 4.5 3.2-4.8 g/dL SEPSIS Sepsis Screen Date sepsis recognized/suspect: Jan 30, 2025 Time Sepsis recognized/suspect: 1943 Recent Procedure: No On Antibiotic Therapy: No Respiratory Rate >20: No Heart Rate >90: No Temp<36 C (96.8 F) or >38.3 C: No SBP <90 or MAP <65 mmHG: No New Acute Mental Status Change: No Is the patient on CPAP, BIPAP,: No Physician Orders Urinalysis (01/30/25 19:55) Ct Ab Pel Wo Con-No Oral Or Iv (01/30/25 19:55) Vitamin D, 25-Hydroxy (01/30/25 23:21) Phosphorus (01/30/25 23:21) Thyroid Stimulating Hormone (01/30/25 23:21) Vitamin B12 (01/30/25 23:21) Complete Blood Count (01/31/25 04:00) Basic Metabolic Panel (01/31/25 04:00) Magnesium (01/30/25 23:21) Strain All Urine For Stones (01/30/25 23:21) Admit (01/30/25 23:21) Allergies (01/30/25 23:21) Renal Standard(2gna,3gk,Lopho) (01/31/25 Breakfast) Condition: Stable (01/30/25 23:21) Morphine Sulfate Injection (01/30/25 23:30) Notify Md Of Changes From Base (01/30/25 23:21) Carvedilol Tablet (Coreg Tablet) (01/31/25 10:00) Losartan Tablet (Cozaar Tablet) (01/31/25 10:00) Nifedipine Er (Procardia Xl (Time-Releas (01/31/25 10:00) (Nf) Atorvastatin Calcium (01/31/25 10:00) (Nf) Hydralazine Hcl (01/31/25 06:00) Fluoxetine Capsule (Prozac Capsule) (01/31/25 10:00) Tamsulosin Hydrochloride (Flomax) (01/30/25 23:30) Tamsulosin Hydrochloride (Flomax) (01/31/25 18:00) Ceftriaxone 1gm/50ml (Rocephin) (01/30/25 23:30) Stat Ekg For Chest Pain (01/30/25 23:21) Emergency Dysrhythmia Protocol (01/30/25 23:21) Rhythm Strips Once Every Shift (01/30/25 23:21) * Urology Consult (01/30/25 23:31) Vital Signs Date Time Temp Pulse Resp B/P (MAP) Pulse Ox O2 Delivery O2 Flow Rate FiO2 01/30/25 19:56 64 20 95 Room Air 01/30/25 19:56 97.2 64 20 211/60 (110) 95 97.2 01/30/25 19:40 97.7 61 20 185/55 93 97.7 Laboratory Tests Test 01/30/25 20:06 White Blood Count 6.4 10^3/uL (4.4-10.8) Assessment/Plan Assessment/Plan Assessment and Plan: Intractable back pain due possible Ureterolithiasis - Abdominal CT 01/30/2025: No acute noncontrast CT abnormality in the abdomen or pelvis - Abdominal CT 01/26/2025: 6 mm nonobstructive right kidney stone, no hydronephrosis - Flomax 0.4 mg PO qPM - Morphine 2 mg IV q4 hours PRN - Lidocaine 1 path q 24 hours - Urology consult Hypertensive crisis - Control pain - Clonidine 01 mg PO once - Continue Carvedilol 3.125 mg PO BID - Continue Nifedipine 30 mg PO daily - Losartan 50 mg PO daily - Hydralazine 50 mg PO TID Acute Cystitis without hematuria - UA from 01/26/2025 - Ceftriaxone 1 g IV daily Type 2 Diabetes Mellitus, HbA1c 6.1 (01/26/2025) - Mild SSI - Accu-Cheks ESRD on hemodialysis - [facility] has been consulted - Renal diet Diet: Renal DVT prophylaxis: Heparin 5000 U q12 hr sc GI prophylaxis: Not indicated Case discussed with Dr. Corrigan Goals of care discussed with the patient and her daughter, Tasha, for over 26 minutes. FULL CODE. Plan discussed with: Patient, Daughter, Other (Nurses) My Orders Orders - RADHA ALMONTE Procedure Category Date Status Time Vitamin D, 25-Hydroxy LAB 01/30/25 In Process 23:21 Phosphorus LAB 01/30/25 In Process 23:21 Thyroid Stimulating LAB 01/30/25 In Process Hormone 23:21 Vitamin B12 LAB 01/30/25 In Process 23:21 Complete Blood Count LAB 01/31/25 Verified 04:00 Basic Metabolic Panel LAB 01/31/25 Verified 04:00 Magnesium LAB 01/30/25 In Process 23:21 Strain All Urine For GISELL 01/30/25 In Process Stones 23:21 Admit ADMIT 01/30/25 Transmitted 23:21 Allergies GISELL 01/30/25 In Process 23:21 Renal DIET 01/31/25 Transmitted Standard(2gna,3gk,Lopho) Breakfast Condition: Stable GISELL 10/7/25 In Process 23:21 Morphine Sulfate PHA 01/30/25 In Process Injection 23:30 Notify Of Changes GISELL 01/30/25 In Process From Base 23:21 Carvedilol Tablet PHA 01/31/25 In Process (Coreg Tablet) 10:00 Losartan Tablet PHA 01/31/25 In Process (Cozaar Tablet) 10:00 Nifedipine Er PHA 01/31/25 In Process (Procardia Xl 10:00 (Nf) Atorvastatin PHA 01/31/25 Logged Calcium 10:00 (Nf) Hydralazine Hcl PHA 01/31/25 Logged 06:00 Fluoxetine Capsule PHA 01/31/25 In Process (Prozac Capsule) 10:00 Tamsulosin PHA 01/30/25 In Process Hydrochloride (Flomax) 23:30 Tamsulosin PHA 01/31/25 Logged Hydrochloride (Flomax) 18:00 Ceftriaxone 1gm/50ml PHA 01/30/25 Logged (Rocephin) 23:30 Stat Ekg For Chest GISELL 01/30/25 In Process Pain 23:21 Emergency Dysrhythmia GISELL 01/30/25 In Process Protocol 23:21 Rhythm Strips Once GISELL 01/30/25 In Process Every Shift 23:21 * Urology Consult CONS 01/30/25 Transmitted 23:31 Date of Service: Jan 30, 2025 Billing Provider: CORDELL CORRIGAN MD Common Visit Codes: [id number] INP/OBS CARE (HIGH) Secondary Visit Codes: [id number] CARE PLAN 30 MINUTES RADHA ALMONTE RESIDENT Jan 30, 2025 23:37 LIGIA TUCKER RESIDENT Jan 31, 2025 07:04
[2025-01-31 00:06] LABS: Magnesium 2.2 mg/dL (1.6-2.6)
[2025-01-31] MEDS: TAMSULOSIN HYDROCHLORIDE 0.4 MG CAP PO ONE (00:27)
[2025-01-31] MEDS: LIDOCAINE 5% TOPICAL PATCH TOP ONE (00:27)
[2025-01-31 00:50] VITALS: BP 221/76; PULSE 61; RESP 18; RESP 19; TEMP 98.2; O2SAT 98
[2025-01-31] MEDS ORDERED: DEXTROSE (50%) 50ML SYRG IV PRN (03:30)
[2025-01-31 05:17] VITALS: BP 123/44; PULSE 57; RESP 14; TEMP 98; O2SAT 99
[2025-01-31 05:29] LABS: Anion Gap 13 (5-15); Calcium 9.2 mg/dL (8.7-10.4); Carbon Dioxide 30 mmol/L (20-31)
[2025-01-31 05:34] LABS: BUN/Creatinine Ratio 2.8 (10.0-20.0); Chloride 93 mmol/L (98-107); Potassium 3.4 mmol/L (3.5-5.1); Sodium 136 mmol/L (136-145)
[2025-01-31 05:35] LABS: Blood Urea Nitrogen 9 mg/dL (9-23); Glucose 109 mg/dL (74-106); Hematocrit 26.3 % (36.0-46.0); Hemoglobin 9.2 g/dL (12.2-16.2); Mean Corpuscular Hemoglobin 33.9 pg (28.0-32.0); Mean Corpuscular Volume 96.8 fL (80.0-100.0); Nucleated Red Blood Cells % 0.0 %
[2025-01-31 06:24] VITALS: BP 129/48; PULSE 59; RESP 14; O2SAT 97
[2025-01-31] MEDS: ACCU-CHEK COMFORT CURVE STRIP VI SCH (06:33)
[2025-01-31] MEDS: InsuLIN REG 1unit/0.01ml Soln (100units/ml) SC SCH (07:00)
[2025-01-31 08:08] VITALS: BP 130/48; PULSE 63; RESP 14; TEMP 97.9; O2SAT 100
--- NOTE | 2025-01-31 08:32 | DVH ---
EXAMINATION: XY R RIB XRAY INDICATION: Back pain COMPARISON: XY CHEST PORTABLE on DOS: 01/26/25, XY CHEST PORTABLE on DOS: 01/10/25 TECHNIQUE: Frontal view of the chest and 3 views of the right ribs history FINDINGS: No focal consolidation, pleural effusion or significant pneumothorax. Normal cardiomediastinal silhou ette. No displaced right rib fracture. IMPRESSION: No acute cardiopulmonary disease. No displaced right rib fracture.
[2025-01-31] MEDS: CARVEDILOL 3.125 MG TAB PO SCH (08:55)
[2025-01-31] MEDS: ATORVASTATIN 20 MG TAB PO SCH (08:56)
[2025-01-31] MEDS: LOSARTAN POTASSIUM 50 MG TAB PO SCH (08:57)
[2025-01-31] MEDS: HEPARIN SODIUM (PORCINE) 5000 UNITS/ML 1ML VIAL SC SCH (09:18)
[2025-01-31 14:36] LABS: Urine Protein, UAD 3+ (Negative)
--- NOTE | 2025-01-31 16:11 | DVHINCON2 ---
Date of service: Jan 31, [address] Corrigan Reason for Consultation Dialysis History of Present Illness 64 Y/O F with history of ESRD on HD, DM,HTN, CVA with residual right sided weakness presented with chief complaint of right sided back pain. She was recently hospitalized and discharged on 01/28 for the same reason. CT A/P does not show any acute abnormalities. K is 3.4 mmol/l, and Hb: 9.2 g/dl. Nephrology consulted for dialysis. she had her last dialysis yesterday 01/30/25 at [facility]. Past Medical History ESRD on HD DM HTN CVA with residual right sided weakness Past Surgical History AVF creation Allergies: Coded Allergies: NO KNOWN ALLERGIES (Unverified , 01/10/25) Home Meds Active Scripts Cefdinir (Cefdinir) 300 Mg Cap, 1 CAP PO BID for 3 Days, #6 CAP Prov:DEVONTE BOLDEN MD 01/28/25 Nifedipine (Nifedipine Er) 30 Mg Tab, 1 TAB PO DAILY, #30 TAB 3 Refills Prov:DEVONTE BOLDEN MD 01/28/25 Losartan Potassium (Losartan Potassium) 50 Mg Tab, 50 MG PO DAILY, #30 TAB Prov:DEVONTE BOLDEN MD 01/28/25 Reported Medications Acetaminophen (Tylenol) 325 Mg Cap, 325 MG PO, CAP 01/26/25 Carvedilol (Carvedilol) 3.125 Mg Tab, 1 TAB PO BID 01/26/25 Fluoxetine HCl (Fluoxetine HCl) 20 Mg Cap, 1 CAP PO DAILY 01/26/25 Atorvastatin Calcium (ATORVASTATIN CALCIUM) 80 Mg Tab, 1 TAB PO DAILY 01/26/25 Hydralazine Hcl (Hydralazine Hcl) 50 Mg Tab, 1 TAB PO TID 01/26/25 Current Medications Current Medications Medications (Trade) Dose Ordered Sig/Carito Route PRN Reason Start Time Stop Time Status Last Admin Morphine Sulfate 2 mg Q4HPRN PRN IV SEVERE PAIN (7-10 PAIN SCALE) 01/30/25 23:30 Carvedilol (Coreg Tablet) 3.125 mg BID PO 01/31/25 10:00 01/31/25 08:55 Losartan Potassium (Cozaar Tablet) 50 mg DAILY PO 01/31/25 10:00 01/31/25 08:57 Nifedipine (Procardia Xl (Time-Release)) 30 mg DAILY PO 01/31/25 10:00 01/31/25 08:57 Atorvastatin Calcium (Lipitor) 80 mg DAILY PO 01/31/25 10:00 01/31/25 08:56 Hydralazine HCl (Apresoline Tablet) 50 mg TID PO 01/31/25 06:00 01/31/25 14:51 Fluoxetine HCl (PROzac CAPSULE) 20 mg DAILY PO 01/31/25 10:00 01/31/25 08:57 Tamsulosin HCl (Flomax) 0.4 mg QPM PO 01/31/25 18:00 Ceftriaxone Sodium 50 ml @ 100 mls/hr DAILY@09 IV 01/30/25 23:30 01/31/25 09:22 Heparin Sodium (Porcine) 5,000 units Q12HR SC 01/31/25 10:00 01/31/25 09:18 Lidocaine (Lidoderm 5% Topical Patch) 1 patch Q24H TOP 01/31/25 23:00 Diagnostic Test (Pha) (Accu-Chek Comfort Curve T) 1 strip ACHS 01/31/25 07:00 01/31/25 11:30 Insulin Human Regular (InsuLIN R) ACHS SC 01/31/25 07:00 Dextrose 50 ml UD PRN IV Blood Sugar LESS THAN 60 01/31/25 03:30 Family History: FH: uterine cancer G8 MOTHER (CANCER), Review of Systems as per HPI, all other systems reviewed and are negative. H&P Exam Vital Signs/I&O Vital Sign Date Time Temp Pulse Resp B/P (MAP) Pulse Ox O2 Delivery O2 Flow Rate FiO2 01/31/25 14:51 133/42 01/31/25 08:55 63 01/31/25 08:08 97.9 14 100 97.9 01/30/25 19:56 Room Air Physical Exam Gen: NAD HEENT: NC, AT Lungs: Crackles lung bases Cardiac: RRR, no murmur Abd: soft, no distention Ext: no edema Neuro: no focal deficits + left arm AVF Labs/Diagnostic Data Labs/Diagnostic Data Laboratory Tests Test 01/31/25 14:21 01/31/25 11:51 01/31/25 06:31 01/31/25 04:01 Range/Units Urine Color Light-yellow Yellow Urine Clarity Turbid H Clear Urine pH 8.0 5.0-9.0 Urine Specific [place] 1.012 1.001-1.035 Urine Protein 3+ H Negative Urine Ketones Negative Negative Urine Blood Negative Negative /uL Urine Nitrite Negative Negative Urine Bilirubin Negative Negative Urine Urobilinogen Normal Negative mg/dL Urine Leukocyte Esterase 1+ Negative /uL Urine RBC 2 0 - 4 /hpf Urine Microscopic WBC 24 H 0-5 /HPF Urine Squamous Epithelial Cells Many <5 /hpf Urine Bacteria None seen None Seen /hpf Urine Glucose 1+ H Normal mg/dL POC Glucose 127 H 130 H 70-106 mg/dl White Blood Count 5.6 4.4-10.8 10^3/uL Red Blood Count 2.72 L 4.0-5.20 10^6/uL Hemoglobin 9.2 L 12.2-16.2 g/dL Hematocrit 26.3 L 36.0-46.0 % Mean Corpuscular Volume 96.8 80.0-100.0 fL Mean Corpuscular Hemoglobin 33.9 H 28.0-32.0 pg Mean Corpuscular Hemoglobin Concent 35.0 32.0-36.0 g/dL Red Cell Distribution Width 15.0 H 11.8-14.3 % Platelet Count 193 140-450 10^3/uL Mean Platelet Volume 9.0 6.9-10.8 fL Neutrophils (%) (Auto) 49.5 37.0-80.0 % Lymphocytes (%) (Auto) 33.6 10.0-50.0 % Monocytes (%) (Auto) 11.7 0.0-12.0 % Eosinophils (%) (Auto) 3.4 0.0-7.0 % Basophils (%) (Auto) 1.8 0.0-2.0 % Neutrophils # (Auto) 2.8 1.6-8.6 10 ^3/uL Lymphocytes # (Auto) 1.9 0.4-5.4 10 ^3/uL Monocytes # (Auto) 0.7 0-1.3 10 ^3/uL Eosinophils # (Auto) 0.2 0-0.8 10 ^3/uL Basophils # (Auto) 0.1 0-0.2 10 ^3/uL Nucleated Red Blood Cells 0.0 % Sodium Level 136 136-145 mmol/L Potassium Level 3.4 L 3.5-5.1 mmol/L Chloride Level 93 L 98-107 mmol/L Carbon Dioxide Level 30 20-31 mmol/L Anion Gap 13 5-15 Blood Urea Nitrogen 9 9-23 mg/dL Creatinine 3.19 H 0.550-1.02 mg/dL Glomerular Filtration Rate Calc 16 >90 mL/min BUN/Creatinine Ratio 2.8 L 10.0-20.0 Serum Glucose 109 H 74-106 mg/dL Calcium Level 9.2 8.7-10.4 mg/dL Test 01/30/25 20:06 Range/Units White Blood Count 6.4 4.4-10.8 10^3/uL Red Blood Count 3.03 L 4.0-5.20 10^6/uL Hemoglobin 9.9 L 12.2-16.2 g/dL Hematocrit 28.7 L 36.0-46.0 % Mean Corpuscular Volume 94.8 80.0-100.0 fL Mean Corpuscular Hemoglobin 32.7 H 28.0-32.0 pg Mean Corpuscular Hemoglobin Concent 34.5 32.0-36.0 g/dL Red Cell Distribution Width 15.1 H 11.8-14.3 % Platelet Count 238 140-450 10^3/uL Mean Platelet Volume 8.4 6.9-10.8 fL Neutrophils (%) (Auto) 55.7 37.0-80.0 % Lymphocytes (%) (Auto) 29.0 10.0-50.0 % Monocytes (%) (Auto) 10.2 0.0-12.0 % Eosinophils (%) (Auto) 3.3 0.0-7.0 % Basophils (%) (Auto) 1.8 0.0-2.0 % Neutrophils # (Auto) 3.5 1.6-8.6 10 ^3/uL Lymphocytes # (Auto) 1.8 0.4-5.4 10 ^3/uL Monocytes # (Auto) 0.6 0-1.3 10 ^3/uL Eosinophils # (Auto) 0.2 0-0.8 10 ^3/uL Basophils # (Auto) 0.1 0-0.2 10 ^3/uL Nucleated Red Blood Cells 0.0 % Sodium Level 137 136-145 mmol/L Potassium Level 3.9 3.5-5.1 mmol/L Chloride Level 93 L 98-107 mmol/L Carbon Dioxide Level 31 20-31 mmol/L Anion Gap 13 5-15 Blood Urea Nitrogen 7 L 9-23 mg/dL Creatinine 2.79 #H 0.550-1.02 mg/dL Glomerular Filtration Rate Calc 18 >90 mL/min BUN/Creatinine Ratio 2.5 L 10.0-20.0 Serum Glucose 109 H 74-106 mg/dL Calcium Level 9.3 8.7-10.4 mg/dL Phosphorus Level 2.3 L 2.4-5.1 mg/dL Magnesium Level 2.2 1.6-2.6 mg/dL Total Bilirubin 0.7 0.2-1.0 mg/dL Aspartate Amino Transferase (AST) 13 13-40 U/L Alanine Aminotransferase (ALT) < 9 7-40 U/L Alkaline Phosphatase 104 46-116 U/L Total Protein 8.2 5.7-8.2 g/dL Albumin 4.5 3.2-4.8 g/dL Vitamin B12 Level 742 211-911 pg/mL Vitamin D 25-Hydroxy 62.2 30.0-100 ng/mL Thyroid Stimulating Hormone (TSH) 0.95 0.55-4.78 uIU/mL Assessment Assessment: ESRD on HD Intractable back pain Hypokalemia ? UTI DM HTN CVA with residual right sided weakness Hyperphosphatemia Secondary hyperparathyroidism Anemia of CKD Plan: s/p HD yesterday at [facility] Next HD tomorrow () Continue HD on TTS schedule [facility] post HD as needed , goal Hb: 10-11 g/dl Continue Coreg 3.125 mg BID, and Losartan 50 mg PO daily Fluid restriction on IV ceftriaxone Plan discussed with: Patient RINKU TAVAREZ MD Jan 31, 2025 16:10
--- NOTE | 2025-01-31 16:53 | DVHPNRES ---
Progress Note Date Seen: Jan 31, 2025 Resident Creating Document: ABIDA RICHARDSON RESIDENT Has the PT tested + for MRSA If YES, has PT been informed?: No Medical Necessity Reason Pt with a Central, PICC or Fol: No Subjective Review of Systems Ms. Lynn is a 64 year old female with prior medical history of type 2 diabetes mellitus, ESRD on hemodialysis on //Wed schedule, hypertension, and ischemic stroke in 2015 with remaining weakness in the right leg, who presents today accompanied by her daughter, Tasha, with chief complaint of back pain. The patient's daughter states the patient has been complaining of right flank pain for the last week described as sharp, non-radiating, /, without aggravating or relieving factors. She denies nausea, vomiting, fever, hematuria, chest pain, and shortness of breath. She was discharged from this institution on 01/28/2025 due to back pain, hypertensive urgency, and UTI. Due to persistence of symptoms, she sought medical attention in the emergency department. on evaluation in the ED, the patient was hypertensive, other vitals are within normal range. Initial labs show normocytic anemia and creatinine 2.79. Abdominal CT from today shows no acute non-contrast CT abnormality in the abdomen or pelvis. she was started on IV pain medication, IV antibiotics and Flomax. She was admitted for further workup and monitoring. 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 Patient continues to complain of pain in the right flank. Nephrology on board and patient has a hemodialysis scheduled for tomorrow. They have also suggested Continue HD on TTS schedule and [facility] post HD as needed , goal Hb: 10-11 g/dl. urology consult, pending Objective vital signs Vital Sign Date Time Temp Pulse Resp B/P (MAP) Pulse Ox O2 Delivery O2 Flow Rate FiO2 01/31/25 14:51 133/42 01/31/25 08:55 63 01/31/25 08:08 97.9 14 100 97.9 01/30/25 19:56 Room Air medications Current Medications Medications Dose Ordered Sig/Carito Route Start Time Stop Time Status Last Admin Dose Admin Morphine Sulfate 2 mg Q4HPRN PRN IV 01/30/25 23:30 Carvedilol 3.125 mg BID PO 01/31/25 10:00 01/31/25 08:55 3.125 MG Losartan Potassium 50 mg DAILY PO 01/31/25 10:00 01/31/25 08:57 50 MG Nifedipine 30 mg DAILY PO 01/31/25 10:00 01/31/25 08:57 30 MG Atorvastatin Calcium 80 mg DAILY PO 01/31/25 10:00 01/31/25 08:56 80 MG Hydralazine HCl 50 mg TID PO 01/31/25 06:00 01/31/25 14:51 50 MG Fluoxetine HCl 20 mg DAILY PO 01/31/25 10:00 01/31/25 08:57 20 MG Tamsulosin HCl 0.4 mg QPM PO 01/31/25 18:00 Ceftriaxone Sodium 50 ml @ 100 mls/hr DAILY@09 IV 01/30/25 23:30 01/31/25 09:22 100 MLS/HR Heparin Sodium (Porcine) 5,000 units Q12HR SC 01/31/25 10:00 01/31/25 09:18 5,000 UNITS Lidocaine 1 patch Q24H TOP 01/31/25 23:00 Diagnostic Test (Pha) 1 strip ACHS 01/31/25 07:00 01/31/25 11:30 1 STRIP Insulin Human Regular ACHS SC 01/31/25 07:00 Dextrose 50 ml UD PRN IV 01/31/25 03:30 Examination General: The patient alert and oriented in person place and time. Patient following commands HEENT: Normocephalic, atraumatic, normal reactive pupils, EOM intact, pink conjunctiva, pink moist mucous membrane Respiratory/pulmonary: Bilateral chest expansion, no pain on palpation of chest wall, clear lungs bilaterally, vesicular murmurs present in almost all lung subramanian, no associated crackles or wheezes. Cardiovascular: Normal RRR, normal S1 and S2, no murmurs Abdomen: Abdomen nondistended, normal bowel sounds, soft, pain in right flank, CVA tenderness present, no palpable masses. Extremities: No deformities, there is no peripheral edema present at the lower extremities, normal pulses, presence of hemodialysis AV fistula on inner surface of left arm bruit and thrills present Skin: No rashes or pruritus, there is no sacral edema present at this time. Neurological: Intact cranial nerves with no focal neurologic deficits laboratory and microbiology Laboratory Tests 01/31/25 04:01 Test 01/31/25 04:01 Range/Units Serum Glucose 109 H 74-106 mg/dL Labs and/or images reviewed: Labs reviewed by me, Image(s) reviewed by me Problem List/Assessment/Plan Problem List/Assessment/Plan #Intractable back pain due possible Ureterolithiasis - Abdominal CT 01/30/2025: No acute noncontrast CT abnormality in the abdomen or pelvis - Abdominal CT 01/26/2025: 6 mm nonobstructive right kidney stone, no hydronephrosis - Flomax 0.4 mg PO qPM - morphine sulfate 2 mg q.4 PRN IV for severe pain - Lidocaine 1 patch q 24 hours - Urology consult #Hypertensive crisis - Clonidine 01 mg PO once - Continue Carvedilol 3.125 mg PO BID - Continue Nifedipine 30 mg PO daily - Losartan 50 mg PO daily - Hydralazine 50 mg PO TID - nystatin 80 mg daily p.o. - nifedipine 30 mg p.o. daily #Acute Cystitis without hematuria - UA from 01/26/2025 - Ceftriaxone 1 g IV daily - tamsulosin 0.4 mg q.p.m. p.o. #Type 2 Diabetes Mellitus, HbA1c 6.1 (01/26/2025) - Mild SSI - Accu-Cheks #ESRD on hemodialysis - nephrology on board, the have suggested Next HD tomorrow (),Continue HD on TTS schedule,[facility] post HD as needed , goal Hb: 10-11 g/dl; Fluid restriction - Renal diet Diet: Renal DVT prophylaxis: Heparin 5000 U q12 hr sc GI prophylaxis: Not indicated Case discussed with Dr. Corrigan Goals of care discussed with the patient and her daughter, Tasha, for over 26 minutes. FULL CO Plan discussed with: Patient Date of Service: Jan 31, 2025 Billing Provider: CORDELL CORRIGAN MD Common Visit Codes: [id number] INP/OBS CARE(HIGH) ABIDA RICHARDSON Jan 31, 2025 16:53 CORDELL CORRIGAN MD Jan 31, 2025 17:47
[2025-01-31] MEDS: TAMSULOSIN HYDROCHLORIDE 0.4 MG CAP PO SCH (18:24)
[2025-01-31 20:00] VITALS: PULSE 69; RESP 17; O2SAT 95
[2025-01-31 21:00] VITALS: BP 134/52; PULSE 69; RESP 17; TEMP 98.1; O2SAT 95
[2025-01-31] MEDS: LIDOCAINE 5% TOPICAL PATCH TOP SCH (23:43)
[2025-02-01] VITALS (8 sets, daily range): BP systolic 122–148; BP diastolic 46–81; PULSE 63–68; RESP 16–18; TEMP 97.4–98.6; O2SAT 95–98
--- NOTE | 2025-02-01 06:50 | DVHPN2 ---
Progress Note - Dictate Date Seen: Feb 01, 2025 Has the PT tested + for MRSA If YES, has PT been informed?: No Medical Necessity Reason Pt with a Central, PICC or Fol: No Subjective no new symptoms vital signs Vital Sign Date Time Temp Pulse Resp B/P (MAP) Pulse Ox O2 Delivery O2 Flow Rate FiO2 02/01/25 05:31 129/68 02/01/25 05:00 97.4 63 17 96 97.4 01/31/25 20:00 Room Air* 0 21 Total Intake and Output 01/31/25 01/31/25 02/01/25 15:00 23:00 07:00 Intake Total 50 ml 300 ml Output Total 750 ml Balance 50 ml -450 ml medications Current Medications Medications Dose Ordered Sig/Carito Route Start Time Stop Time Status Last Admin Dose Admin Morphine Sulfate 2 mg Q4HPRN PRN IV 01/30/25 23:30 Carvedilol 3.125 mg BID PO 01/31/25 10:00 01/31/25 22:00 3.125 MG Losartan Potassium 50 mg DAILY PO 01/31/25 10:00 01/31/25 08:57 50 MG Nifedipine 30 mg DAILY PO 01/31/25 10:00 01/31/25 08:57 30 MG Atorvastatin Calcium 80 mg DAILY PO 01/31/25 10:00 01/31/25 08:56 80 MG Hydralazine HCl 50 mg TID PO 01/31/25 06:00 02/01/25 05:31 50 MG Fluoxetine HCl 20 mg DAILY PO 01/31/25 10:00 01/31/25 08:57 20 MG Tamsulosin HCl 0.4 mg QPM PO 01/31/25 18:00 01/31/25 18:24 0.4 MG Ceftriaxone Sodium 50 ml @ 100 mls/hr DAILY@09 IV 01/30/25 23:30 01/31/25 09:22 100 MLS/HR Heparin Sodium (Porcine) 5,000 units Q12HR SC 01/31/25 10:00 01/31/25 21:55 5,000 UNITS Lidocaine 1 patch Q24H TOP 01/31/25 23:00 01/31/25 23:43 1 PATCH Diagnostic Test (Pha) 1 strip ACHS 01/31/25 07:00 02/01/25 06:05 1 STRIP Insulin Human Regular ACHS SC 01/31/25 07:00 01/31/25 21:54 4 UNITS Dextrose 50 ml UD PRN IV 01/31/25 03:30 objective Gen: NAD HEENT: NC, AT Lungs: Crackles lung bases Cardiac: RRR, no murmur Abd: soft, no distention Ext: no edema Neuro: no focal deficits + left arm AVF laboratory and microbiology Laboratory Tests 01/31/25 04:01 Test 01/31/25 04:01 Range/Units Serum Glucose 109 H 74-106 mg/dL Assessment/Plan Assessment: ESRD on HD Intractable back pain Hypokalemia ? UTI DM HTN CVA with residual right sided weakness Hyperphosphatemia Secondary hyperparathyroidism Anemia of CKD Plan: Next HD today () s/p HD Wednesday at [facility] Continue HD on TTS schedule [facility] post HD as needed , goal Hb: 10-11 g/dl Continue Coreg 3.125 mg BID, and Losartan 50 mg PO daily Fluid restriction on IV ceftriaxone Plan discussed with: Patient RINKU TAVAREZ MD Feb 01, 2025 06:49
[2025-02-01] MEDS: SODIUM CHL 0.9% 1000 ML BAG XX ONE (07:00)
[2025-02-01 07:27] LABS: Albumin 3.7 g/dL (3.2-4.8); Alkaline Phosphatase 89 U/L (46-116); Anion Gap 14 (5-15); BUN/Creatinine Ratio 3.8 (10.0-20.0); Blood Urea Nitrogen 20 mg/dL (9-23); Calcium 8.8 mg/dL (8.7-10.4); Carbon Dioxide 28 mmol/L (20-31); Glucose 88 mg/dL (74-106); Potassium 4.1 mmol/L (3.5-5.1); Sodium 138 mmol/L (136-145); Total Protein 6.8 g/dL (5.7-8.2)
[2025-02-01 07:28] LABS: Alanine Aminotransferase < 9 U/L (7-40); Bilirubin, Total 0.4 mg/dL (0.2-1.0); Chloride 96 mmol/L (98-107)
[2025-02-01 07:29] LABS: Hematocrit 27.1 % (36.0-46.0); Hemoglobin 9.4 g/dL (12.2-16.2); Mean Corpuscular Hemoglobin 33.4 pg (28.0-32.0); Mean Corpuscular Volume 96.5 fL (80.0-100.0); Nucleated Red Blood Cells % 0.1 %
--- NOTE | 2025-02-01 12:28 | DVHPNRES ---
Progress Note Date Seen: Feb 01, 2025 Resident Creating Document: ABIDA RICHARDSON RESIDENT Has the PT tested + for MRSA If YES, has PT been informed?: No Medical Necessity Reason Pt with a Central, PICC or Fol: No Subjective Review of Systems Ms. Lynn is a 64 year old female with prior medical history of type 2 diabetes mellitus, ESRD on hemodialysis on //Wed schedule, hypertension, and ischemic stroke in 2015 with remaining weakness in the right leg, who presents today accompanied by her daughter, Tasha, with chief complaint of back pain. The patient's daughter states the patient has been complaining of right flank pain for the last week described as sharp, non-radiating, 8/10, without aggravating or relieving factors. She denies nausea, vomiting, fever, hematuria, chest pain, and shortness of breath. She was discharged from this institution on 01/28/2025 due to back pain, hypertensive urgency, and UTI. Due to persistence of symptoms, she sought medical attention in the emergency department. on evaluation in the ED, the patient was hypertensive, other vitals are within normal range. Initial labs show normocytic anemia and creatinine 2.79. Abdominal CT from today shows no acute non-contrast CT abnormality in the abdomen or pelvis. she was started on IV pain medication, IV antibiotics and Flomax. She was admitted for further workup and monitoring. 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 Patient continues to complain of pain in the right flank. Nephrology on board and patient has a hemodialysis scheduled for tomorrow. They have also suggested Continue HD on TTS schedule and [facility] post HD as needed , goal Hb: 10-11 g/dl. urology consult, pending 02/01/2025: Patient was seen and examined by me at the bedside today. Patient reports that she has no pain in the back anymore and feels better. There is no increased urinary frequency, hesitation, burning micturition present either. Nephrology is on board. Patient underwent hemodialysis today- 2l was removed. Urology consult pending Objective vital signs Vital Sign Date Time Temp Pulse Resp B/P (MAP) Pulse Ox O2 Delivery O2 Flow Rate FiO2 02/01/25 09:00 98.5 68 16 139/55 (83) 96 98.5 02/01/25 08:00 Room Air* 0 21 Total Intake and Output 01/31/25 01/31/25 02/01/25 15:00 23:00 07:00 Intake Total 50 ml 300 ml Output Total 750 ml Balance 50 ml -450 ml medications Current Medications Medications Dose Ordered Sig/Carito Route Start Time Stop Time Status Last Admin Dose Admin Morphine Sulfate 2 mg Q4HPRN PRN IV 01/30/25 23:30 Carvedilol 3.125 mg BID PO 01/31/25 10:00 01/31/25 22:00 3.125 MG Losartan Potassium 50 mg DAILY PO 01/31/25 10:00 01/31/25 08:57 50 MG Nifedipine 30 mg DAILY PO 01/31/25 10:00 01/31/25 08:57 30 MG Atorvastatin Calcium 80 mg DAILY PO 01/31/25 10:00 01/31/25 08:56 80 MG Hydralazine HCl 50 mg TID PO 01/31/25 06:00 02/01/25 05:31 50 MG Fluoxetine HCl 20 mg DAILY PO 01/31/25 10:00 01/31/25 08:57 20 MG Tamsulosin HCl 0.4 mg QPM PO 01/31/25 18:00 01/31/25 18:24 0.4 MG Ceftriaxone Sodium 50 ml @ 100 mls/hr DAILY@09 IV 01/30/25 23:30 02/01/25 09:37 100 MLS/HR Heparin Sodium (Porcine) 5,000 units Q12HR SC 01/31/25 10:00 01/31/25 21:55 5,000 UNITS Lidocaine 1 patch Q24H TOP 01/31/25 23:00 01/31/25 23:43 1 PATCH Diagnostic Test (Pha) 1 strip ACHS 01/31/25 07:00 02/01/25 11:17 1 STRIP Insulin Human Regular ACHS SC 01/31/25 07:00 02/01/25 11:28 3 UNITS Dextrose 50 ml UD PRN IV 01/31/25 03:30 Examination General: The patient alert and oriented in person place and time. Patient following commands HEENT: Normocephalic, atraumatic, normal reactive pupils, EOM intact, pink conjunctiva, pink moist mucous membrane Respiratory/pulmonary: Bilateral chest expansion, no pain on palpation of chest wall, clear lungs bilaterally, vesicular murmurs present in almost all lung subramanian, no associated crackles or wheezes. Cardiovascular: Normal RRR, normal S1 and S2, no murmurs Abdomen: Abdomen nondistended, normal bowel sounds, soft, no palpable masses. Extremities: No deformities, there is no peripheral edema present at the lower extremities, normal pulses, presence of hemodialysis AV fistula on inner surface of left arm bruit and thrills present Skin: No rashes or pruritus, there is no sacral edema present at this time. Neurological: Intact cranial nerves with no focal neurologic deficits laboratory and microbiology Laboratory Tests 02/01/25 05:30 Test 02/01/25 05:30 Range/Units Serum Glucose 88 74-106 mg/dL Labs and/or images reviewed: Labs reviewed by me, Image(s) reviewed by me Problem List/Assessment/Plan Problem List/Assessment/Plan #Intractable back pain due possible Ureterolithiasis - Abdominal CT 01/30/2025: No acute noncontrast CT abnormality in the abdomen or pelvis - Abdominal CT 01/26/2025: 6 mm nonobstructive right kidney stone, no hydronephrosis - Flomax 0.4 mg PO qPM - morphine sulfate 2 mg q.4 PRN IV for severe pain - Lidocaine 1 patch q 24 hours - Urology consult , pending #Hypertensive crisis - Clonidine 01 mg PO once - Continue Carvedilol 3.125 mg PO BID - Continue Nifedipine 30 mg PO daily - Losartan 50 mg PO daily - Hydralazine 50 mg PO TID - nystatin 80 mg daily p.o. - nifedipine 30 mg p.o. daily #Acute Cystitis without hematuria - UA from 01/26/2025 - Ceftriaxone 1 g IV daily - tamsulosin 0.4 mg q.p.m. p.o. #Type 2 Diabetes Mellitus, HbA1c 6.1 (01/26/2025) - Mild SSI - Accu-Cheks #ESRD on hemodialysis TTS - nephrology on board - hemodialysis done today- 2 liters removed - Renal diet Diet: Renal DVT prophylaxis: Heparin 5000 U q12 hr sc GI prophylaxis: Not indicated Case discussed with Dr. Corrigan Goals of care discussed with the patient and her daughter, Tasha, for over 26 minutes. FULL CODE Plan discussed with: Patient (rn) My Orders My Orders Orders - ABIDA RICHARDSON Procedure Category Date Status Time Urine Bacterial PIA 02/01/25 Uncollected Culture 07:24 Date of Service: Feb 01, 2025 Billing Provider: CORDELL CORRIGAN MD Common Visit Codes: [id number] INP/OBS CARE(HIGH) ABIDA RICHARDSON Feb 01, 2025 12:28 CORDELL CORRIGAN MD Feb 01, 2025 20:05
[2025-02-01] MEDS: EPOETIN ALFA-EPBX 10,000 UNIT/1ML VIAL SC ONE (21:02)
[2025-02-02] VITALS (8 sets, daily range): BP systolic 113–151; BP diastolic 43–64; PULSE 56–67; RESP 16–18; TEMP 97.8–98.8; O2SAT 92–98
[2025-02-02 06:47] LABS: Hematocrit 28.3 % (36.0-46.0); Hemoglobin 9.6 g/dL (12.2-16.2); Mean Corpuscular Hemoglobin 32.5 pg (28.0-32.0); Mean Corpuscular Volume 95.9 fL (80.0-100.0); Nucleated Red Blood Cells % 0.1 %
[2025-02-02 07:16] LABS: Anion Gap 14 (5-15); Carbon Dioxide 29 mmol/L (20-31); Potassium 3.7 mmol/L (3.5-5.1); Sodium 140 mmol/L (136-145)
[2025-02-02 07:18] LABS: Calcium 8.8 mg/dL (8.7-10.4)
[2025-02-02 07:22] LABS: BUN/Creatinine Ratio 2.6 (10.0-20.0); Blood Urea Nitrogen 10 mg/dL (9-23); Glucose 92 mg/dL (74-106)
[2025-02-02 07:23] LABS: Chloride 97 mmol/L (98-107)
--- NOTE | 2025-02-02 16:32 | DVHPNRES ---
Progress Note Date Seen: Feb 02, 2025 Resident Creating Document: ABIDA RICHARDSON RESIDENT Has the PT tested + for MRSA If YES, has PT been informed?: No Medical Necessity Reason Pt with a Central, PICC or Fol: No Subjective Review of Systems Ms. Lynn is a 64 year old female with prior medical history of type 2 diabetes mellitus, ESRD on hemodialysis on //Wed schedule, hypertension, and ischemic stroke in 2015 with remaining weakness in the right leg, who presents today accompanied by her daughter, Tasha, with chief complaint of back pain. The patient's daughter states the patient has been complaining of right flank pain for the last week described as sharp, non-radiating, 8/10, without aggravating or relieving factors. She denies nausea, vomiting, fever, hematuria, chest pain, and shortness of breath. She was discharged from this institution on 01/28/2025 due to back pain, hypertensive urgency, and UTI. Due to persistence of symptoms, she sought medical attention in the emergency department. on evaluation in the ED, the patient was hypertensive, other vitals are within normal range. Initial labs show normocytic anemia and creatinine 2.79. Abdominal CT from today shows no acute non-contrast CT abnormality in the abdomen or pelvis. she was started on IV pain medication, IV antibiotics and Flomax. She was admitted for further workup and monitoring. 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 Patient continues to complain of pain in the right flank. Nephrology on board and patient has a hemodialysis scheduled for tomorrow. They have also suggested Continue HD on TTS schedule and [facility] post HD as needed , goal Hb: 10-11 g/dl. urology consult, pending 02/01/2025: Patient was seen and examined by me at the bedside today. Patient reports that she has no pain in the back anymore and feels better. There is no increased urinary frequency, hesitation, burning micturition present either. Nephrology is on board. Patient underwent hemodialysis today- 2l was removed. Urology consult pending : Patient was seen and examined by me at the bedside today. She has no new active complaints. Urology consult pending Objective vital signs Vital Sign Date Time Temp Pulse Resp B/P (MAP) Pulse Ox O2 Delivery O2 Flow Rate FiO2 02/02/25 14:45 151/64 02/02/25 13:00 97.8 56 18 92 97.8 02/02/25 08:00 Room Air* 0 21 Total Intake and Output 02/01/25 02/01/25 02/02/25 15:00 23:00 07:00 Intake Total 50 ml 900 ml Output Total 600 ml Balance 50 ml 300 ml medications Current Medications Medications Dose Ordered Sig/Carito Route Start Time Stop Time Status Last Admin Dose Admin Morphine Sulfate 2 mg Q4HPRN PRN IV 01/30/25 23:30 Carvedilol 3.125 mg BID PO 01/31/25 10:00 02/02/25 09:30 3.125 MG Losartan Potassium 50 mg DAILY PO 01/31/25 10:00 02/02/25 09:30 50 MG Nifedipine 30 mg DAILY PO 01/31/25 10:00 02/02/25 09:30 30 MG Atorvastatin Calcium 80 mg DAILY PO 01/31/25 10:00 02/02/25 09:29 80 MG Hydralazine HCl 50 mg TID PO 01/31/25 06:00 02/02/25 14:45 50 MG Fluoxetine HCl 20 mg DAILY PO 01/31/25 10:00 02/02/25 09:29 20 MG Tamsulosin HCl 0.4 mg QPM PO 01/31/25 18:00 02/01/25 18:00 0.4 MG Ceftriaxone Sodium 50 ml @ 100 mls/hr DAILY@09 IV 01/30/25 23:30 02/02/25 09:28 100 MLS/HR Heparin Sodium (Porcine) 5,000 units Q12HR SC 01/31/25 10:00 02/02/25 09:29 5,000 UNITS Lidocaine 1 patch Q24H TOP 01/31/25 23:00 02/01/25 22:33 1 PATCH Diagnostic Test (Pha) 1 strip ACHS 01/31/25 07:00 02/02/25 11:05 1 STRIP Insulin Human Regular ACHS SC 01/31/25 07:00 02/02/25 11:05 2 UNITS Dextrose 50 ml UD PRN IV 01/31/25 03:30 Examination General: The patient alert and oriented in person place and time. Patient following commands HEENT: Normocephalic, atraumatic, normal reactive pupils, EOM intact, pink conjunctiva, pink moist mucous membrane Respiratory/pulmonary: Bilateral chest expansion, no pain on palpation of chest wall, clear lungs bilaterally, vesicular murmurs present in almost all lung subramanian, no associated crackles or wheezes. Cardiovascular: Normal RRR, normal S1 and S2, no murmurs Abdomen: Abdomen nondistended, normal bowel sounds, soft, no palpable masses. Extremities: No deformities, there is no peripheral edema present at the lower extremities, normal pulses, presence of hemodialysis AV fistula on inner surface of left arm bruit and thrills present Skin: No rashes or pruritus, there is no sacral edema present at this time. Neurological: Intact cranial nerves with no focal neurologic deficits laboratory and microbiology Laboratory Tests 02/02/25 05:39 Test 02/02/25 05:39 Range/Units Serum Glucose 92 74-106 mg/dL Labs and/or images reviewed: Labs reviewed by me, Image(s) reviewed by me Problem List/Assessment/Plan Problem List/Assessment/Plan #Intractable back pain due possible Ureterolithiasis - Abdominal CT 01/30/2025: No acute noncontrast CT abnormality in the abdomen or pelvis - Abdominal CT 01/26/2025: 6 mm nonobstructive right kidney stone, no hydronephrosis - Flomax 0.4 mg PO qPM - morphine sulfate 2 mg q.4 PRN IV for severe pain - Lidocaine 1 patch q 24 hours - Urology consult , pending #Hypertensive crisis - Clonidine 01 mg PO once - Continue Carvedilol 3.125 mg PO BID - Continue Nifedipine 30 mg PO daily - Losartan 50 mg PO daily - Hydralazine 50 mg PO TID - nystatin 80 mg daily p.o. - nifedipine 30 mg p.o. daily #Acute Cystitis without hematuria - UA from 01/26/2025 - Ceftriaxone 1 g IV daily - tamsulosin 0.4 mg q.p.m. p.o. #Type 2 Diabetes Mellitus, HbA1c 6.1 (01/26/2025) - Mild SSI - Accu-Cheks #ESRD on hemodialysis TTS - nephrology on board - hemodialysis done today- 2 liters removed - Renal diet Diet: Renal DVT prophylaxis: Heparin 5000 U q12 hr sc GI prophylaxis: Not indicated Case discussed with Dr. Corrigan Goals of care discussed with the patient and her daughter, Tasha, for over 26 minutes. FULL CODE Plan discussed with: Patient Date of Service: Feb 02, 2025 Billing Provider: CORDELL CORRIGAN MD Common Visit Codes: [id number] INP/OBS CARE(HIGH) ABIDA RICHARDSON RESIDENT Feb 02, 2025 16:32 CORDELL CORRIGAN MD Feb 02, 2025 19:16
--- NOTE | 2025-02-02 19:27 | DVHPN2 ---
Progress Note - Dictate Date Seen: Feb 02, 2025 Has the PT tested + for MRSA If YES, has PT been informed?: No Medical Necessity Reason Pt with a Central, PICC or Fol: No Subjective no new symptoms vital signs Vital Sign Date Time Temp Pulse Resp B/P (MAP) Pulse Ox O2 Delivery O2 Flow Rate FiO2 02/02/25 16:59 98.8 61 16 122/47 (72) 94 98.8 02/02/25 08:00 Room Air* 0 21 Total Intake and Output 02/01/25 02/01/25 02/02/25 15:00 23:00 07:00 Intake Total 50 ml 900 ml Output Total 600 ml Balance 50 ml 300 ml medications Current Medications Medications Dose Ordered Sig/Carito Route Start Time Stop Time Status Last Admin Dose Admin Morphine Sulfate 2 mg Q4HPRN PRN IV 01/30/25 23:30 Carvedilol 3.125 mg BID PO 01/31/25 10:00 02/02/25 09:30 3.125 MG Losartan Potassium 50 mg DAILY PO 01/31/25 10:00 02/02/25 09:30 50 MG Nifedipine 30 mg DAILY PO 01/31/25 10:00 02/02/25 09:30 30 MG Atorvastatin Calcium 80 mg DAILY PO 01/31/25 10:00 02/02/25 09:29 80 MG Hydralazine HCl 50 mg TID PO 01/31/25 06:00 02/02/25 14:45 50 MG Fluoxetine HCl 20 mg DAILY PO 01/31/25 10:00 02/02/25 09:29 20 MG Tamsulosin HCl 0.4 mg QPM PO 01/31/25 18:00 02/02/25 17:50 0.4 MG Ceftriaxone Sodium 50 ml @ 100 mls/hr DAILY@09 IV 01/30/25 23:30 02/02/25 09:28 100 MLS/HR Heparin Sodium (Porcine) 5,000 units Q12HR SC 01/31/25 10:00 02/02/25 09:29 5,000 UNITS Lidocaine 1 patch Q24H TOP 01/31/25 23:00 02/01/25 22:33 1 PATCH Diagnostic Test (Pha) 1 strip ACHS 01/31/25 07:00 02/02/25 17:00 1 STRIP Insulin Human Regular ACHS SC 01/31/25 07:00 02/02/25 11:05 2 UNITS Dextrose 50 ml UD PRN IV 01/31/25 03:30 objective Gen: NAD HEENT: NC, AT Lungs: Crackles lung bases Cardiac: RRR, no murmur Abd: soft, no distention Ext: no edema Neuro: no focal deficits + left arm AVF laboratory and microbiology Laboratory Tests 02/02/25 05:39 Test 02/02/25 05:39 Range/Units Serum Glucose 92 74-106 mg/dL Assessment/Plan Assessment: ESRD on HD Intractable back pain Hypokalemia ? UTI DM HTN CVA with residual right sided weakness Hyperphosphatemia Secondary hyperparathyroidism Anemia of CKD Plan: s/p HD Next HD on Wednesday Continue HD on TTS schedule [facility] post HD as needed , goal Hb: 10-11 g/dl Continue Coreg 3.125 mg BID, and Losartan 50 mg PO daily Fluid restriction on IV ceftriaxone Plan discussed with: Patient RINKU TAVAREZ MD Feb 02, 2025 19:27
--- NOTE | 2025-02-02 21:50 | DVHINCON2 ---
Date of service: Feb 02, 2025 Referring Physician Hospitalist Reason for Consultation ?stone History of Present Illness CT Scan on 01/26/25 revealed 6 mm right upper pole renal stone CT Scan on 01/30/25 shows persistent right lower pole renal stone Patient was admitted for right flank pain which has subsequently resolved. Family History: FH: uterine cancer G8 MOTHER (CANCER), Allergies: Coded Allergies: NO KNOWN ALLERGIES (Unverified , 01/10/25) Home Meds Active Scripts Tamsulosin Hcl (Flomax) 0.4 Mg Cap, 0.4 MG PO QPM for 30 Days, #30 CAP Prov:SIS NI RESIDENT 02/03/25 Cefdinir (Cefdinir) 300 Mg Cap, 1 CAP PO BID for 5 Days, #10 CAP Prov:SIS NI RESIDENT 02/03/25 Nifedipine (Nifedipine Er) 30 Mg Tab, 1 TAB PO DAILY, #30 TAB 3 Refills Prov:DEVONTE BOLDEN MD 01/28/25 Losartan Potassium (Losartan Potassium) 50 Mg Tab, 50 MG PO DAILY, #30 TAB Prov:DEVONTE BOLDEN MD 01/28/25 Reported Medications Acetaminophen (Tylenol) 325 Mg Cap, 325 MG PO, CAP 01/26/25 Carvedilol (Carvedilol) 3.125 Mg Tab, 1 TAB PO BID 01/26/25 Fluoxetine HCl (Fluoxetine HCl) 20 Mg Cap, 1 CAP PO DAILY 01/26/25 Atorvastatin Calcium (ATORVASTATIN CALCIUM) 80 Mg Tab, 1 TAB PO DAILY 01/26/25 Hydralazine Hcl (Hydralazine Hcl) 50 Mg Tab, 1 TAB PO TID 01/26/25 Discontinued Scripts Cefdinir (Cefdinir) 300 Mg Cap, 1 CAP PO BID for 3 Days, #6 CAP Prov:DEVONTE BOLDEN MD 01/28/25 Review of Systems No flank pain at this time Vital Signs Vital Signs Date Time Temp Pulse Resp B/P (MAP) Pulse Ox O2 Delivery O2 Flow Rate FiO2 02/02/25 21:29 129/51 02/02/25 21:29 66 02/02/25 16:59 98.8 16 94 98.8 02/02/25 08:00 Room Air* 0 21 Physical Exam No acute distress Labs/Diagnostic Data Labs Test 02/02/25 21:32 02/02/25 05:39 02/01/25 05:30 01/31/25 14:21 Range/Units POC Glucose 233 H 70-106 mg/dl White Blood Count 5.6 4.4-10.8 10^3/uL Red Blood Count 2.95 L 4.0-5.20 10^6/uL Hemoglobin 9.6 L 12.2-16.2 g/dL Hematocrit 28.3 L 36.0-46.0 % Mean Corpuscular Volume 95.9 80.0-100.0 fL Mean Corpuscular Hemoglobin 32.5 H 28.0-32.0 pg Mean Corpuscular Hemoglobin Concent 33.9 32.0-36.0 g/dL Red Cell Distribution Width 15.3 H 11.8-14.3 % Platelet Count 188 140-450 10^3/uL Mean Platelet Volume 8.5 6.9-10.8 fL Neutrophils (%) (Auto) 43.9 37.0-80.0 % Lymphocytes (%) (Auto) 38.7 10.0-50.0 % Monocytes (%) (Auto) 11.5 0.0-12.0 % Eosinophils (%) (Auto) 4.6 0.0-7.0 % Basophils (%) (Auto) 1.3 0.0-2.0 % Neutrophils # (Auto) 2.5 1.6-8.6 10 ^3/uL Lymphocytes # (Auto) 2.2 0.4-5.4 10 ^3/uL Monocytes # (Auto) 0.6 0-1.3 10 ^3/uL Eosinophils # (Auto) 0.3 0-0.8 10 ^3/uL Basophils # (Auto) 0.1 0-0.2 10 ^3/uL Nucleated Red Blood Cells 0.1 % Sodium Level 140 136-145 mmol/L Potassium Level 3.7 3.5-5.1 mmol/L Chloride Level 97 L 98-107 mmol/L Carbon Dioxide Level 29 20-31 mmol/L Anion Gap 14 5-15 Blood Urea Nitrogen 10 # 9-23 mg/dL Creatinine 3.83 H 0.550-1.02 mg/dL Glomerular Filtration Rate Calc 13 >90 mL/min BUN/Creatinine Ratio 2.6 L 10.0-20.0 Serum Glucose 92 74-106 mg/dL Calcium Level 8.8 8.7-10.4 mg/dL Total Bilirubin 0.4 0.2-1.0 mg/dL Aspartate Amino Transferase (AST) 17 13-40 U/L Alanine Aminotransferase (ALT) < 9 7-40 U/L Alkaline Phosphatase 89 46-116 U/L Total Protein 6.8 5.7-8.2 g/dL Albumin 3.7 3.2-4.8 g/dL Urine Color Light-yellow Yellow Urine Clarity Turbid H Clear Urine pH 8.0 5.0-9.0 Urine Specific [place] 1.012 1.001-1.035 Urine Protein 3+ H Negative Urine Ketones Negative Negative Urine Blood Negative Negative /uL Urine Nitrite Negative Negative Urine Bilirubin Negative Negative Urine Urobilinogen Normal Negative mg/dL Urine Leukocyte Esterase 1+ Negative /uL Urine RBC 2 0 - 4 /hpf Urine Microscopic WBC 24 H 0-5 /HPF Urine Squamous Epithelial Cells Many <5 /hpf Urine Bacteria None seen None Seen /hpf Urine Glucose 1+ H Normal mg/dL Test 01/30/25 20:06 Range/Units Phosphorus Level 2.3 L 2.4-5.1 mg/dL Magnesium Level 2.2 1.6-2.6 mg/dL Vitamin B12 Level 742 211-911 pg/mL Vitamin D 25-Hydroxy 62.2 30.0-100 ng/mL Thyroid Stimulating Hormone (TSH) 0.95 0.55-4.78 uIU/mL PATIENT: AGUSTIN VANEGASACCT: [id number] UNIT: [id number] : 1960 LOC: ER ROOM / BED: / AGE / SEX: 64 / F ADM STATUS: REG ER SERVICE 54 ORDERING PHYSICIAN: ELMA SOW PROCEDURE(s): ABPL - CT AB PEL WO CON-NO ORAL OR IV REASON: flank pain ORDER NUMBER(s): [id number], ACCESSION NUMBER(s): [id number] CLINICAL HISTORY: flank pain TECHNIQUE: CT of the abdomen and pelvis was performed without IV contrast. This exam was performed according to our departmental dose optimization program. Up-to-date CT equipment and radiation dose reduction techniques are utilized as appropriate. CTDI 12.4 DLP 579 COMPARISON: CT CT AB PEL WO CON-NO ORAL OR IV on DOS: 01/26/25 FINDINGS: Abdomen/Pelvis: The spleen, pancreas, adrenal glands, gallbladder, liver, bladder, and uterus are grossly unremarkable. The bilateral kidneys appear mildly atrophic with cortical thinning. The abdominal aorta is normal in course and caliber. There are mild aortic atherosclerotic calcifications. There are advanced atherosclerotic calcifications of aortic branch vessels and arterial vessels within imaged p roximal or extremities. There is no free intraperitoneal air or fluid. There is no enlarged abdominal pelvic lymph node. There is no bowel wall thickening or dilatation. The appendix is normal. Minimal colonic diverticulosis. Other: The imaged lower thorax demonstrate breathing changes and diffuse ground-glass changes. The heart is moderately enlarged coronary artery calcifications. No acute osseous abnormality is evident. Impression: No acute noncontrast CT abnormality in the abdomen or pelvis. Moderate cardiomegaly with coronary artery calcifications. Diffuse ground-glass appearance of the lung most likely relates to breathing changes and/or reactive airway disease / air trapping. Minimal colonic diverticulosis. Mildly atrophic kidneys with cortical thinning. ATED BY: VIPIN LOCKETT MD DICTATED DATE/TIME: 01/30/252040 SIGNED BY: VIPIN LOCKETT MD SIGNED DATE/TIME: 01/30/252040 CC: Assessment Flank pain CT Scan confirms 6 mm right lower pole renal stone Plan/Recommendation Outpatient [facility] TBA Plan discussed with: Patient, Other YEN AN MD Feb 02, 2025 21:50
[2025-02-03] VITALS (7 sets, daily range): BP systolic 120–181; BP diastolic 46–66; PULSE 60–63; RESP 13–17; TEMP 97.6–98; O2SAT 95–98
[2025-02-03 06:07] LABS: Hematocrit 27.9 % (36.0-46.0); Hemoglobin 9.6 g/dL (12.2-16.2); Mean Corpuscular Hemoglobin 32.6 pg (28.0-32.0); Mean Corpuscular Volume 94.8 fL (80.0-100.0); Nucleated Red Blood Cells % 0.0 %
[2025-02-03 06:18] LABS: Potassium 4.0 mmol/L (3.5-5.1)
[2025-02-03 06:19] LABS: Anion Gap 12 (5-15); Calcium 8.9 mg/dL (8.7-10.4); Carbon Dioxide 29 mmol/L (20-31)
[2025-02-03 06:22] LABS: Chloride 93 mmol/L (98-107); Sodium 134 mmol/L (136-145)
[2025-02-03 06:24] LABS: BUN/Creatinine Ratio 3.7 (10.0-20.0); Blood Urea Nitrogen 20 mg/dL (9-23); Glucose 91 mg/dL (74-106)
--- NOTE | 2025-02-03 06:56 | DVHPN2 ---
Progress Note - Dictate Date Seen: Feb 03, 2025 Has the PT tested + for MRSA If YES, has PT been informed?: No Medical Necessity Reason Pt with a Central, PICC or Fol: No Subjective no new symptoms vital signs Vital Sign Date Time Temp Pulse Resp B/P (MAP) Pulse Ox O2 Delivery O2 Flow Rate FiO2 02/03/25 06:00 134/54 02/03/25 05:00 98.0 60 17 97 98.0 02/02/25 20:00 Room Air* 0 21 Total Intake and Output 02/02/25 02/02/25 02/03/25 15:00 23:00 07:00 Intake Total 50 ml 1250 ml Output Total 500 ml Balance 50 ml 750 ml medications Current Medications Medications Dose Ordered Sig/Carito Route Start Time Stop Time Status Last Admin Dose Admin Morphine Sulfate 2 mg Q4HPRN PRN IV 01/30/25 23:30 Carvedilol 3.125 mg BID PO 01/31/25 10:00 02/02/25 21:29 3.125 MG Losartan Potassium 50 mg DAILY PO 01/31/25 10:00 02/02/25 09:30 50 MG Nifedipine 30 mg DAILY PO 01/31/25 10:00 02/02/25 09:30 30 MG Atorvastatin Calcium 80 mg DAILY PO 01/31/25 10:00 02/02/25 09:29 80 MG Hydralazine HCl 50 mg TID PO 01/31/25 06:00 02/02/25 14:45 50 MG Fluoxetine HCl 20 mg DAILY PO 01/31/25 10:00 02/02/25 09:29 20 MG Tamsulosin HCl 0.4 mg QPM PO 01/31/25 18:00 02/02/25 17:50 0.4 MG Ceftriaxone Sodium 50 ml @ 100 mls/hr DAILY@09 IV 01/30/25 23:30 02/02/25 09:28 100 MLS/HR Heparin Sodium (Porcine) 5,000 units Q12HR SC 01/31/25 10:00 02/02/25 21:35 5,000 UNITS Lidocaine 1 patch Q24H TOP 01/31/25 23:00 02/02/25 22:36 1 PATCH Diagnostic Test (Pha) 1 strip ACHS 01/31/25 07:00 02/03/25 06:18 1 STRIP Insulin Human Regular ACHS SC 01/31/25 07:00 02/02/25 21:39 4 UNITS Dextrose 50 ml UD PRN IV 01/31/25 03:30 objective Gen: NAD HEENT: NC, AT Lungs: Crackles lung bases Cardiac: RRR, no murmur Abd: soft, no distention Ext: no edema Neuro: no focal deficits + left arm AVF laboratory and microbiology Laboratory Tests 02/03/25 05:23 Test 02/03/25 05:23 Range/Units Serum Glucose 91 74-106 mg/dL Assessment/Plan Assessment: ESRD on HD Intractable back pain Hypokalemia ? UTI DM HTN CVA with residual right sided weakness Hyperphosphatemia Secondary hyperparathyroidism Anemia of CKD Plan: Scheduled for HD for - Wednesday s/p HD Continue HD on TTS schedule [facility] post HD as needed , goal Hb: 10-11 g/dl Continue Coreg 3.125 mg BID, and Losartan 50 mg PO daily Fluid restriction on IV ceftriaxone Plan discussed with: Patient RINKU TAVAREZ MD Feb 03, 2025 06:56
--- NOTE | 2025-02-03 13:02 | DVHDSRES ---
Discharge Summary Date of Admission Resident Creating Document: ABIDA RICHARDSON RESIDENT Jan 30, 2025 at 23:21 Date of Discharge: Feb 03, 2025 Admitting Diagnosis anemia Labs/Diagnostic Data: Laboratory Results Test 02/03/25 12:16 02/03/25 05:23 02/01/25 05:30 01/31/25 14:21 POC Glucose 132 mg/dl (70-106) White Blood Count 6.6 10^3/uL (4.4-10.8) Red Blood Count 2.94 10^6/uL (4.0-5.20) Hemoglobin 9.6 g/dL (12.2-16.2) Hematocrit 27.9 % (36.0-46.0) Mean Corpuscular Volume 94.8 fL (80.0-100.0) Mean Corpuscular Hemoglobin 32.6 pg (28.0-32.0) Mean Corpuscular Hemoglobin Concent 34.3 g/dL (32.0-36.0) Red Cell Distribution Width 15.1 % (11.8-14.3) Platelet Count 188 10^3/uL (140-450) Mean Platelet Volume 8.9 fL (6.9-10.8) Neutrophils (%) (Auto) 55.1 % (37.0-80.0) Lymphocytes (%) (Auto) 31.5 % (10.0-50.0) Monocytes (%) (Auto) 9.8 % (0.0-12.0) Eosinophils (%) (Auto) 2.7 % (0.0-7.0) Basophils (%) (Auto) 0.9 % (0.0-2.0) Neutrophils # (Auto) 3.6 10 ^3/uL (1.6-8.6) Lymphocytes # (Auto) 2.1 10 ^3/uL (0.4-5.4) Monocytes # (Auto) 0.7 10 ^3/uL (0-1.3) Eosinophils # (Auto) 0.2 10 ^3/uL (0-0.8) Basophils # (Auto) 0.1 10 ^3/uL (0-0.2) Nucleated Red Blood Cells 0.0 % Sodium Level 134 mmol/L (136-145) Potassium Level 4.0 mmol/L (3.5-5.1) Chloride Level 93 mmol/L (98-107) Carbon Dioxide Level 29 mmol/L (20-31) Anion Gap 12 (5-15) Blood Urea Nitrogen 20 mg/dL (9-23) Creatinine 5.39 mg/dL (0.550-1.02) Glomerular Filtration Rate Calc 8 mL/min (>90) BUN/Creatinine Ratio 3.7 (10.0-20.0) Serum Glucose 91 mg/dL (74-106) Calcium Level 8.9 mg/dL (8.7-10.4) Total Bilirubin 0.4 mg/dL (0.2-1.0) Aspartate Amino Transferase (AST) 17 U/L (13-40) Alanine Aminotransferase (ALT) < 9 U/L (7-40) Alkaline Phosphatase 89 U/L (46-116) Total Protein 6.8 g/dL (5.7-8.2) Albumin 3.7 g/dL (3.2-4.8) Urine Color Light-yellow (Yellow) Urine Clarity Turbid (Clear) Urine pH 8.0 (5.0-9.0) Urine Specific [place] 1.012 (1.001-1.035) Urine Protein 3+ (Negative) Urine Ketones Negative (Negative) Urine Blood Negative /uL (Negative) Urine Nitrite Negative (Negative) Urine Bilirubin Negative (Negative) Urine Urobilinogen Normal mg/dL (Negative) Urine Leukocyte Esterase 1+ /uL (Negative) Urine RBC 2 /hpf (0 - 4) Urine Microscopic WBC 24 /HPF (0-5) Urine Squamous Epithelial Cells Many /hpf (<5) Urine Bacteria None seen /hpf (None Seen) Urine Glucose 1+ mg/dL (Normal) Test 01/30/25 20:06 Phosphorus Level 2.3 mg/dL (2.4-5.1) Magnesium Level 2.2 mg/dL (1.6-2.6) Vitamin B12 Level 742 pg/mL (211-911) Vitamin D 25-Hydroxy 62.2 ng/mL (30.0-100) Thyroid Stimulating Hormone (TSH) 0.95 uIU/mL (0.55-4.78) Other Laboratory Tests 02/03/25 05:23 Brief Hx & Hospital Course: Shane AustinJulieth is a 64 year old female with prior medical history of type 2 diabetes mellitus, ESRD on hemodialysis on , hypertension, and ischemic stroke in 2014 with remaining weakness in the right leg, who presents today accompanied by her daughter, Tasha, with chief complaint of back pain. The patient's daughter states the patient has been complaining of right flank pain for the last week described as sharp, non-radiating, 8/10, without aggravating or relieving factors. She denies nausea, vomiting, fever, hematuria, chest pain, and shortness of breath. She was discharged from this institution on 01/28/2025 due to back pain, hypertensive urgency, and UTI. Due to persistence of symptoms, she sought medical attention in the emergency department. on evaluation in the ED, the patient was hypertensive, other vitals are within normal range. Initial labs show normocytic anemia and creatinine 2.79. Abdominal CT from today shows no acute non-contrast CT abnormality in the abdomen or pelvis. she was started on IV pain medication, IV antibiotics and Flomax. She was admitted for further workup and monitoring. 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 CT abdomen and pelvis was done which showed a 6 mm nonobstructive right kidney stone with no hydronephrosis. We continued to give the patient Flomax 0.4 mg p.o. daily and for pain we gave her morphine sulfate 2 mg q.4 PRN IV as well as lidocaine patches. Urine analysis showed acute cystitis without hematuria and ceftriaxone 1 g IV daily has been given as well. Hypotensive crisis we gave her clonidine 0.1 mg p.o. once, continued her carvedilol 3.[address] a day, nifedipine 30 mg daily, losartan and hydralazine. Patient also had ESRD on hemodialysis so we consulted Nephrology who has been hemodialysis her on Wednesday, and Wednesday. Patient also is type 2 diabetic and A1c was found to be 6.1. We have been monitoring her blood glucose levels and given mild sliding scale insulin. Twelve the hospitalization we kept the patient on a renal diet and patient reports feeling much better than before. Urology has suggested outpatient follow up for ESWL TBA. We have counseled the patient the need of following up with Urology, continuing her hemodialysis and patient has communicated understanding and agreed with the discharge plan. General: The patient alert and oriented in person place and time. Patient following commands HEENT: Normocephalic, atraumatic, normal reactive pupils, EOM intact, pink conjunctiva, pink moist mucous membrane Respiratory/pulmonary: Bilateral chest expansion, no pain on palpation of chest wall, clear lungs bilaterally, vesicular murmurs present in almost all lung subramanian, no associated crackles or wheezes. Cardiovascular: Normal RRR, normal S1 and S2, no murmurs Abdomen: Abdomen nondistended, normal bowel sounds, soft, no palpable masses. Extremities: No deformities, there is no peripheral edema present at the lower extremities, normal pulses, presence of hemodialysis AV fistula on inner surface of left arm bruit and thrills present Skin: No rashes or pruritus, there is no sacral edema present at this time. Neurological: Intact cranial nerves with no focal neurologic deficits Operations or Procedures PROCEDURE(s): ABPL - CT AB PEL WO CON-NO ORAL OR IV REASON: flank pain Impression: -No acute noncontrast CT abnormality in the abdomen or pelvis. -Moderate cardiomegaly with coronary artery calcifications. Diffuse ground-glass appearance of the lung most likely relates to breathing changes and/or reactive airway disease / air trapping. -Minimal colonic diverticulosis. -Mildly atrophic kidneys with cortical thinning. PROCEDURE(s): RRIBS - R RIB XRAY REASON: Back pain IMPRESSION: No acute cardiopulmonary disease. No displaced right rib fracture. Condition at Discharge: Stable Final Diagnosis/Problems List #Intractable back pain due Ureterolithiasis #Hypertensive crisis #Acute Cystitis without hematuria #Type 2 Diabetes Mellitus, HbA1c 6.1 (01/26/2025) #ESRD on hemodialysis TTS #Minimal colonic diverticulosis #Mildly atrophic kidneys with cortical thinning Discharge Disposition: Home Discharge Instruct/Medications Diet: Consistent carbohydrate, Cardiac 2g Na,low cholest, Renal Activity: No Restrictions, As Tolerated Follow Up/Referral: Follow up with primary care physician in 10 days Follow up at D/C clinic within 2 weeks Follow up with urologist outpatient in 1 week for ESWL TBA Medications: Resume all home medications Scheduled Atorvastatin Calcium (Atorvastatin Calcium), 1 TAB PO DAILY, (Reported) Carvedilol (Carvedilol), 1 TAB PO BID, (Reported) Cefdinir (Cefdinir), 1 CAP PO BID Fluoxetine HCl (Fluoxetine HCl), 1 CAP PO DAILY, (Reported) Hydralazine Hcl (Hydralazine Hcl), 1 TAB PO TID, (Reported) Losartan Potassium (Losartan Potassium), 50 MG PO DAILY Nifedipine (Nifedipine Er), 1 TAB PO DAILY Miscellaneous Medications Acetaminophen (Tylenol), 325 MG PO, (Reported) Discharge Statement: "Patient was advised to return to the ER or call 911 if any headaches, dizziness, shortness of breath, chest pain, abdominal pain, bleeding, fevers, or worsening of medical condition. Patient was counseled about treatment plan, medications, possible side effects, patientverbalized understanding. All questions were answered to the best of my ability. This discharge took greater then 30 minutes in planning, reviewing documentation, counseling the patient, and discussing with other team members." ASSESSMENT ASSESSMENT Assessment #Intractable back pain due Ureterolithiasis #Hypertensive crisis Date of Service: Feb 03, 2025 Billing Provider: CORDELL WATSON MD, SREYA RESIDENT Feb 03, 2025 13:02
[2025-02-03] MEDS ORDERED: CEFD300C2 PO (13:17)
[2025-02-03] MEDS ORDERED: TAMS-35 PO (13:18)
[2025-02-03] MEDS ORDERED: EPOETIN ALFA-EPBX 4,000 UNIT/ML VIAL SC ONE (21:00)
[2025-02-04 01:00] VITALS: BP 150/40; PULSE 59; RESP 16; TEMP 97.8; O2SAT 97
[2025-02-04 05:00] VITALS: BP 158/55; PULSE 58; RESP 18; TEMP 98.3; O2SAT 96
[2025-02-04 08:52] VITALS: BP 114/80; PULSE 60; RESP 18; TEMP 97.7; O2SAT 97
[2025-02-04 12:26] VITALS: BP 159/38; PULSE 64; RESP 18; TEMP 98.5; O2SAT 95
[2025-02-04 13:24] VITALS: BP 158/55; PULSE 64; RESP 18; TEMP 98.5; O2SAT 95
--- NOTE | 2025-02-04 13:45 | DVHPN2 ---
Progress Note - Dictate Date Seen: Feb 04, 2025 Has the PT tested + for MRSA If YES, has PT been informed?: No Medical Necessity Reason Pt with a Central, PICC or Fol: No Medical Necessity Reason Right nephrolithiasis confirmed on CAT scan Subjective No flank pain vital signs Vital Sign Date Time Temp Pulse Resp B/P (MAP) Pulse Ox O2 Delivery O2 Flow Rate FiO2 02/04/25 13:24 98.5 64 18 95 02/04/25 12:26 159/38 (78) 02/03/25 20:00 Room Air* 0 21 Total Intake and Output 02/03/25 02/03/25 02/04/25 15:00 23:00 07:00 Output Total 100 ml Balance -100 ml medications Current Medications Medications Dose Ordered Sig/Carito Route Start Time Stop Time Status Last Admin Dose Admin Morphine Sulfate 2 mg Q4HPRN PRN IV 01/30/25 23:30 Carvedilol 3.125 mg BID PO 01/31/25 10:00 02/02/25 21:29 3.125 MG Losartan Potassium 50 mg DAILY PO 01/31/25 10:00 02/02/25 09:30 50 MG Nifedipine 30 mg DAILY PO 01/31/25 10:00 02/02/25 09:30 30 MG Atorvastatin Calcium 80 mg DAILY PO 01/31/25 10:00 02/04/25 10:30 80 MG Hydralazine HCl 50 mg TID PO 01/31/25 06:00 02/02/25 14:45 50 MG Fluoxetine HCl 20 mg DAILY PO 01/31/25 10:00 02/04/25 10:30 20 MG Tamsulosin HCl 0.4 mg QPM PO 01/31/25 18:00 02/02/25 17:50 0.4 MG Ceftriaxone Sodium 50 ml @ 100 mls/hr DAILY@09 IV 01/30/25 23:30 02/04/25 10:30 100 MLS/HR Heparin Sodium (Porcine) 5,000 units Q12HR SC 01/31/25 10:00 02/03/25 22:02 5,000 UNITS Lidocaine 1 patch Q24H TOP 01/31/25 23:00 02/03/25 22:08 1 PATCH Diagnostic Test (Pha) 1 strip ACHS 01/31/25 07:00 02/04/25 12:04 1 STRIP Insulin Human Regular ACHS SC 01/31/25 07:00 02/04/25 12:18 2 UNITS Dextrose 50 ml UD PRN IV 01/31/25 03:30 objective No acute distress laboratory and microbiology Laboratory Tests 02/03/25 05:23 Test 02/03/25 05:23 Range/Units Serum Glucose 91 74-106 mg/dL Problem List Chronic kidney disease Right nephrolithiasis Assessment/Plan Outpatient lithotripsy to be arranged Dietary Evaluation Review Comments: 1) Add 60g CCHO restriction to renal diet 2) Encourage optimal PO intake 3) Follow-up with nephrology and cardiology 4) Continue to monitor I&O, labs, and skin integrity Expected Outcomes/Goals: 1) appetite and labs to improve 2) f/u in 3-5 days Plan discussed with: Patient, Other YEN AN MD Feb 04, 2025 13:45
--- NOTE | 2025-02-04 14:27 | DVHPNRES ---
Progress Note Date Seen: Feb 04, 2025 Resident Creating Document: NIECY GOOD RESIDENT Has the PT tested + for MRSA If YES, has PT been informed?: No Medical Necessity Reason Pt with a Central, PICC or Fol: No The following are medically ne: Central Line Subjective Review of Systems Patient was seen today at bedside. Patient is due for hemodialysis. Plan is to discharge patient after hemodialysis. No acute complaint Objective vital signs Vital Sign Date Time Temp Pulse Resp B/P (MAP) Pulse Ox O2 Delivery O2 Flow Rate FiO2 02/04/25 13:24 98.5 64 18 95 02/04/25 12:26 159/38 (78) 02/04/25 07:30 Room Air* 0 21 Total Intake and Output 02/03/25 02/03/25 02/04/25 15:00 23:00 07:00 Output Total 100 ml Balance -100 ml medications Current Medications Medications Dose Ordered Sig/Carito Route Start Time Stop Time Status Last Admin Dose Admin Morphine Sulfate 2 mg Q4HPRN PRN IV 01/30/25 23:30 Carvedilol 3.125 mg BID PO 01/31/25 10:00 02/02/25 21:29 3.125 MG Losartan Potassium 50 mg DAILY PO 01/31/25 10:00 02/02/25 09:30 50 MG Nifedipine 30 mg DAILY PO 01/31/25 10:00 02/02/25 09:30 30 MG Atorvastatin Calcium 80 mg DAILY PO 01/31/25 10:00 02/04/25 10:30 80 MG Hydralazine HCl 50 mg TID PO 01/31/25 06:00 02/02/25 14:45 50 MG Fluoxetine HCl 20 mg DAILY PO 01/31/25 10:00 02/04/25 10:30 20 MG Tamsulosin HCl 0.4 mg QPM PO 01/31/25 18:00 02/02/25 17:50 0.4 MG Ceftriaxone Sodium 50 ml @ 100 mls/hr DAILY@09 IV 01/30/25 23:30 02/04/25 10:30 100 MLS/HR Heparin Sodium (Porcine) 5,000 units Q12HR SC 01/31/25 10:00 02/03/25 22:02 5,000 UNITS Lidocaine 1 patch Q24H TOP 01/31/25 23:00 02/03/25 22:08 1 PATCH Diagnostic Test (Pha) 1 strip ACHS 01/31/25 07:00 02/04/25 12:04 1 STRIP Insulin Human Regular ACHS SC 01/31/25 07:00 02/04/25 12:18 2 UNITS Dextrose 50 ml UD PRN IV 01/31/25 03:30 Examination General: The patient alert and oriented in person place and time. Patient following commands HEENT: Normocephalic, atraumatic, normal reactive pupils, EOM intact, pink conjunctiva, pink moist mucous membrane Respiratory/pulmonary: Bilateral chest expansion, no pain on palpation of chest wall, clear lungs bilaterally, vesicular murmurs present in almost all lung subramanian, no associated crackles or wheezes. Cardiovascular: Normal RRR, normal S1 and S2, no murmurs Abdomen: Abdomen nondistended, normal bowel sounds, soft, no palpable masses. Extremities: No deformities, there is no peripheral edema present at the lower extremities, normal pulses, presence of hemodialysis AV fistula on inner surface of left arm bruit and thrills present Skin: No rashes or pruritus, there is no sacral edema present at this time. Neurological: Intact cranial nerves with no focal neurologic deficits laboratory and microbiology Laboratory Tests 02/03/25 05:23 Test 02/03/25 05:23 Range/Units Serum Glucose 91 74-106 mg/dL Problem List/Assessment/Plan Problem List/Assessment/Plan Problem List/Assessment/Plan-PENDING HEMODIALYSIS TODAY. PLAN IS TO DISCHARGE PATIENT AFTER HEMODIALYSIS. #Intractable back pain due possible Ureterolithiasis - Abdominal CT 01/30/2025: No acute noncontrast CT abnormality in the abdomen or pelvis - Abdominal CT 01/26/2025: 6 mm nonobstructive right kidney stone, no hydronephrosis - Flomax 0.4 mg PO qPM - morphine sulfate 2 mg q.4 PRN IV for severe pain - Lidocaine 1 patch q 24 hours #Hypertensive crisis - Clonidine 01 mg PO once - Continue Carvedilol 3.125 mg PO BID - Continue Nifedipine 30 mg PO daily - Losartan 50 mg PO daily - Hydralazine 50 mg PO TID - nystatin 80 mg daily p.o. - nifedipine 30 mg p.o. daily #Acute Cystitis without hematuria - UA from 01/26/2025 - Ceftriaxone 1 g IV daily - tamsulosin 0.4 mg q.p.m. p.o. #Type 2 Diabetes Mellitus, HbA1c 6.1 (01/26/2025) - Mild SSI - Accu-Cheks #ESRD on hemodialysis TTS - nephrology on board - Renal diet Diet: Renal DVT prophylaxis: Heparin 5000 U q12 hr sc GI prophylaxis: Not indicated Case discussed with Dr. Corrigan Goals of care discussed with the patient and her daughter, Tasha, for over 26 minutes. FULL CODE Plan discussed with: Patient Date of Service: Feb 02, 2025 Billing Provider: CORDELL CORRIGAN MD Common Visit Codes: [id number] INP/OBS CARE(HIGH) ABIDA RICHARDSON Feb 02, 2025 16:32 CORDELL CORRIGAN MD Plan discussed with: Patient, Other (RN) Dietary Evaluation Review Comments: 1) Add 60g CCHO restriction to renal diet 2) Encourage optimal PO intake 3) Follow-up with nephrology and cardiology 4) Continue to monitor I&O, labs, and skin integrity Expected Outcomes/Goals: 1) appetite and labs to improve 2) f/u in 3-5 days Date of Service: Feb 04, 2025 Billing Provider: NIECY GOOD RESIDENT NIECY GOOD Feb 04, 2025 14:27
--- NOTE | 2025-02-04 15:02 | DVHPN2 ---
Progress Note - Dictate Date Seen: Feb 04, 2025 Has the PT tested + for MRSA If YES, has PT been informed?: No Medical Necessity Reason Pt with a Central, PICC or Fol: No The following are medically ne: Central Line Subjective no new symptoms vital signs Vital Sign Date Time Temp Pulse Resp B/P (MAP) Pulse Ox O2 Delivery O2 Flow Rate FiO2 02/04/25 13:24 98.5 64 18 95 02/04/25 12:26 159/38 (78) 02/04/25 07:30 Room Air* 0 21 Total Intake and Output 02/03/25 02/03/25 02/04/25 15:00 23:00 07:00 Output Total 100 ml Balance -100 ml medications Current Medications Medications Dose Ordered Sig/Carito Route Start Time Stop Time Status Last Admin Dose Admin Morphine Sulfate 2 mg Q4HPRN PRN IV 01/30/25 23:30 Carvedilol 3.125 mg BID PO 01/31/25 10:00 02/02/25 21:29 3.125 MG Losartan Potassium 50 mg DAILY PO 01/31/25 10:00 02/02/25 09:30 50 MG Nifedipine 30 mg DAILY PO 01/31/25 10:00 02/02/25 09:30 30 MG Atorvastatin Calcium 80 mg DAILY PO 01/31/25 10:00 02/04/25 10:30 80 MG Hydralazine HCl 50 mg TID PO 01/31/25 06:00 02/02/25 14:45 50 MG Fluoxetine HCl 20 mg DAILY PO 01/31/25 10:00 02/04/25 10:30 20 MG Tamsulosin HCl 0.4 mg QPM PO 01/31/25 18:00 02/02/25 17:50 0.4 MG Ceftriaxone Sodium 50 ml @ 100 mls/hr DAILY@09 IV 01/30/25 23:30 02/04/25 10:30 100 MLS/HR Heparin Sodium (Porcine) 5,000 units Q12HR SC 01/31/25 10:00 02/03/25 22:02 5,000 UNITS Lidocaine 1 patch Q24H TOP 01/31/25 23:00 02/03/25 22:08 1 PATCH Diagnostic Test (Pha) 1 strip ACHS 01/31/25 07:00 02/04/25 12:04 1 STRIP Insulin Human Regular ACHS SC 01/31/25 07:00 02/04/25 12:18 2 UNITS Dextrose 50 ml UD PRN IV 01/31/25 03:30 objective Gen: NAD HEENT: NC, AT Lungs: Crackles lung bases Cardiac: RRR, no murmur Abd: soft, no distention Ext: no edema Neuro: no focal deficits + left arm AVF laboratory and microbiology Laboratory Tests 02/03/25 05:23 Test 02/03/25 05:23 Range/Units Serum Glucose 91 74-106 mg/dL Assessment/Plan Assessment: ESRD on HD Intractable back pain Hypokalemia ? UTI DM HTN CVA with residual right sided weakness Hyperphosphatemia Secondary hyperparathyroidism Anemia of CKD Plan: HD not done yesterday due to unavailability of HD RN. She has been rescheduled to get her dialysis today. Continue HD on TTS schedule [facility] post HD as needed , goal Hb: 10-11 g/dl Continue Coreg 3.125 mg BID, and Losartan 50 mg PO daily Fluid restriction on IV ceftriaxone Dietary Evaluation Review Comments: 1) Add 60g CCHO restriction to renal diet 2) Encourage optimal PO intake 3) Follow-up with nephrology and cardiology 4) Continue to monitor I&O, labs, and skin integrity Expected Outcomes/Goals: 1) appetite and labs to improve 2) f/u in 3-5 days Plan discussed with: Patient RINKU TAVAREZ MD Feb 04, 2025 15:02
[2025-02-04 17:00] VITALS: BP 148/58; PULSE 62; RESP 18; TEMP 98; O2SAT 96
[2025-02-04] MEDS: SODIUM CHL 0.9% 1000 ML BAG XX ONE (17:39)
== END 2025-02-04 20:10 | disposition home or self-care (01) | DRG 693 ==
LOC: ER 19:37 → OVERFLOW 23:21 → WEST WING 01-31 17:45
PROVIDERS: ADMIT Student in an Organized Health Care Education/Training Program; ATTEND Student in an Organized Health Care Education/Training Program
PROC: 5A1D70Z Performance of Urinary Filtration, Intermittent, Less than 6 Hours Per Day (ICD-10-PCS; principal; 2025-02-01)
PROC: 5A1D70Z Performance of Urinary Filtration, Intermittent, Less than 6 Hours Per Day (ICD-10-PCS; 2025-02-04)
DX: N20.2 Calculus of kidney with calculus of ureter (principal); N18.6 End stage renal disease; N30.00 Acute cystitis without hematuria; I12.0 Hypertensive chronic kidney disease with stage 5 chronic kidney disease or end stage renal disease; I16.9 Hypertensive crisis, unspecified; I69.351 Hemiplegia and hemiparesis following cerebral infarction affecting right dominant side; N25.81 Secondary hyperparathyroidism of renal origin; K57.30 Diverticulosis of large intestine without perforation or abscess without bleeding; D63.1 Anemia in chronic kidney disease; E87.6 Hypokalemia; I69.398 Other sequelae of cerebral infarction; Z99.2 Dependence on renal dialysis; E11.22 Type 2 diabetes mellitus with diabetic chronic kidney disease; E83.39 Other disorders of phosphorus metabolism; Z80.49 Family history of malignant neoplasm of other genital organs; Z79.84 Long term (current) use of oral hypoglycemic drugs; Z79.899 Other long term (current) drug therapy
CPT/HCPCS: 36415; 71101; 74176; 80048; 80053; 81001; 82306; 82607; 82962; 83735; 84100; 84443; 85025; 90935; G0378; J1815